=== PATIENT | female | born 1980 | race Caucasian/White ===

== ENCOUNTER 2025-04-05 09:40 | Outpatient (AMB) | payer OTHER, SELFPAY ==
[2025-04-05 09:42] VITALS: BP 102/80; PULSE 66; RESP 18; TEMP 36.2; O2SAT 96; BMI 50.2
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
--- OUTSIDE RECORDS SUMMARY | 2025-04-05 11:02 | XMS_ITS | Clinical Summary ---
Author Organization Merged With [facility] Address [address] [place] [address] [place] [phone] Phone Care Team Providers Care Elevator Constructor Name Role Phone Annalise Holm Angélica MULTICUT LINE OPERATOR Primary Care Provider [phone] Social History Tobacco Use Types Packs/Day Years Used Date Smoking Tobacco: Never Assessed Education Answer Date Recorded Are you interested in more education? Not on krystina e 10/08/2024 Are you concerned about learning? Not on file 10/08/2024 No 10/08/2024 No 10/08/2024 Digital Access Answer Date Recorded No 10/08/2024 No 10/08/2024 Reliable internet access at home? Not on file 10/08/2024 Device with a working camera? Not on file Comments Unknown Sex and Gender Information Value Date Recorded Sex Assigned at Female 10/08/2024 11:25 AM EDT Legal Sex Female 11:15 AM EDT Gender Identity Female 10/08/2024 11:25 AM EDT Sexual Orientation Straight 10/08/2024 11 :25 AM EDT Plan of Treatment Upcoming Encounters Date Type Department Care Team (Late st Contact Info) Description 06/20/2025 3:00 PM EST [facility] [address] [place] [id number] Sandra Vargas MD, MPH [address] [place] [phone] [email or web address] Maintenance Due Date Last Done Comments Adult Td,Tdap Booster 1979 LIPID PANEL 1979 DEPRESSION SCREENING 1991 SMOKING Hx and SMOKELESS TOB ACCO SCREENING 1992 HEPATITIS C SCREENING 1997 HIV ONE-TIME SCREENING (18-6 5 YEARS) 1997 PAP SMEAR 2000 MAMMOGRAM 2019 COLOGUARD 2024 COLONOSCOPY 2024 COLORECTAL CANCER SCREENING 2024 FIT TEST 2024 FOBT 2024 SIGMOIDOSCOPY 2024 VIRTUAL COLONOSCOPY 2024 INFLUENZA VACCINE (#1) 2025 COVID-19 VACCINE ( - 2024-2 6 season) 2025 HEPATITIS A VACCINES Aged Out No long er eligible based on patient's age to complete this topic HIB VACCINES Aged Out No longer eligi ble based on patient's age to complete this topic MENINGOCOCCAL VACCINES (ACWY) Aged Out No longer eligible based on patient's age to complete this topic MENINGOCOCCAL VACCINES (B) Aged Out N o longer eligible based on patient's age to complete this topic PNEUMOCOCCAL VACCINES (0-49 years) Aged Out No longer eligible based on patient's age to complete this topic Medical Devices Not on file Insurance [facility] [employer] [facility] [employer] Care Teams Elevator Constructor Relationship Specialty Start Date End Date Annalise Holm NP [address] [place] [address] [phone] PCP - General Family Medicine 10/08/24 Additional Source Comments The information contained in this document represents components of the legal health record. It is not the complete legal health record.Merged With [facility]
== END 2025-04-05 10:56 | disposition home or self-care (01) ==
LOC: HO.HMCH 09:41
PROVIDERS: PCP Internal Medicine; Visit Provider Internal Medicine
DX: R21 Rash and other nonspecific skin eruption (principal); J44.9 Chronic obstructive pulmonary disease, unspecified; E66.9 Obesity, unspecified; Z68.43 Body mass index [BMI] 50.0-59.9, adult; F32.9 Major depressive disorder, single episode, unspecified; F41.1 Generalized anxiety disorder; E03.9 Hypothyroidism, unspecified; M19.90 Unspecified osteoarthritis, unspecified site; Z23 Encounter for immunization

== ENCOUNTER → 2025-04-05 09:40 | Outpatient (BNVA) | payer OTHER, SELFPAY | PROVIDERS: PCP Internal Medicine; Visit Provider Internal Medicine | DX: R21 Rash and other nonspecific skin eruption (principal); F32.9 Major depressive disorder, single episode, unspecified; F41.1 Generalized anxiety disorder; E03.9 Hypothyroidism, unspecified; M19.90 Unspecified osteoarthritis, unspecified site; J44.9 Chronic obstructive pulmonary disease, unspecified; E66.9 Obesity, unspecified; Z23 Encounter for immunization | CPT/HCPCS: 90471; 90656; 99212 ==

== ENCOUNTER 2025-04-07 09:00 | Outpatient (REF) | payer OTHER, SELFPAY ==
--- NOTE | ~2025-04-07 | XR_ITS ---
XR KNEE EDWIN 2V HISTORY: Unspecified osteoarthritis COMPARISON: None. TECHNIQUE: AP view bilateral knees standing, and lateral views of each knee. FINDINGS: RIGHT KNEE: No fracture, dislocation, or suspicious bone lesion. Severe osteoarthrosis noted medial compartment with near [id number] appearance. Moderate to severe changes noted lateral compartment and patellofemoral compartment with large marginal osteophytes, and subchondral sclerosis. There is spurring of the tibial spines. Minimal varus angulation of the joint. No evidence of significant joint effusion. Soft tissues appear normal. LEFT KNEE: No fracture, dislocation, or suspicious bone lesion. Severe osteoarthrosis noted medial compartment with near [id number] appearance. Moderate changes noted lateral compartment and moderate to severe changes in the patellofemoral compartment with large marginal osteophytes and subchondral sclerosis. There is spurring of the tibial spines. Minimal varus angulation of the joint. No evidence of significant joint effusion. Soft tissues appear normal. XR/XR Knee Edwin 1or 2V IMPRESSION: RIGHT KNEE: 1. No acute bony or soft tissue abnormalities. No joint effusion. 2. Severe tricompartmental osteoarthrosis most significant in the medial compartment, where there is near [id number] appearance. LEFT KNEE: 1. No acute bony or soft tissue abnormalities. No joint effusion. 2. Severe medial compartment osteoarthrosis, with moderate to severe changes in the patellofemoral compartment, and moderate changes in the lateral compartment Electronically signed by: Matt Conley MD 04/07/2025 10:03 AM EDT
[2025-04-07 09:29] LABS: MANUAL DIFF FLAG NO
[2025-04-07 09:41] LABS: Hematocrit 38.3 % (37.0-47.0); Hemoglobin 12.2 g/dl (12.0-16.0); Imm Gran Abs Auto 0.02 X10*3/uL (0.00-0.03); Imm Gran Pct Auto 0.2 % (0.0-0.4); Lymphocytes Absolute Auto 2.1 X10*3/uL (1.2-4.9); Mean Corpuscular HGB Conc 31.9 g/dl (31.0-35.0); Mean Corpuscular Hemoglobin 27.8 pg (27.0-33.0); Mean Corpuscular Volume 87.2 fL (80.0-98.0); NRBC Abs Auto 0.000 X10*3/uL (0.0-0.012); NRBC Pct Auto 0.0 /100WBC (0.0-0.2); Platelet Count 322 X10*3/uL (160-400); Red Blood Count 4.39 X10*6/uL (4.20-5.50); White Blood Count 8.1 X10*3/uL (4.8-10.8)
[2025-04-07 10:19] LABS: Alanine Aminotransferase 18 U/L (0-31); Albumin Level 4.4 g/dL (3.5-5.0); Alkaline Phosphatase 83 U/L (39-117); Anion Gap 13 (12-20); Aspartate Amino Transferase 29 U/L (5-31); Blood Urea Nitrogen 13 mg/dL (9-16); Calcium 9.0 mg/dL (8.4-10.2); Carbon Dioxide 24 mmol/L (22-29); Chloride 108 mmol/L (96-108); Cholesterol 160 mg/dL (<200); Estimated Glomerular Filt Rate 59; HDL Cholesterol 40 mg/dL (>40); Potassium 4.3 mmol/L (3.3-5.1); Sodium 141 mmol/L (135-145); Total Protein 6.9 g/dL (6.5-8.0); Triglycerides 159 mg/dL (<150)
[2025-04-07 10:31] LABS: HBS Num1 15.44 mIU/mL (0-7.99); HBc Num1 0.11 S/CO (0.00-0.79); HBsAGNum1 0.35 S/CO (0.00-0.99); HIV Num 1 0.13 S/CO (0.00-0.99); Hepatitis B Surface Antigen Negative (Negative); ~HepC Num1 0.13 S/CO (0.00-0.79); ~Hepatitis B Surface Antibody REACTIVE (Nonreactive); ~Hepatitis C Antibody Nonreactive (Nonreactive)
[2025-04-07 11:26] LABS: Free T4 (Free Thyroxine) 0.77 ng/dL (0.71-1.85)
[2025-04-11 19:28] LABS: VITAMIN D (1,25 OH) D3 40 pg/mL; Vit D (1,25-Dihydroxy) Total 40 pg/mL (18-72); Vitamin D (1,25 OH) D2 <8 pg/mL
== END 2025-04-07 09:01 | disposition home or self-care (01) ==
LOC: HO.XRAY 09:00
PROVIDERS: PCP Internal Medicine; Visit Provider Internal Medicine
DX: Z00.00 Encounter for general adult medical examination without abnormal findings (principal); M17.0 Bilateral primary osteoarthritis of knee; Z11.4 Encounter for screening for human immunodeficiency virus [HIV]; Z11.59 Encounter for screening for other viral diseases
CPT/HCPCS: 36415; 73560; 80053; 80061; 82043; 82570; 82652; 83036; 84439; 84443; 85025; 86704; 86706; 86803; 87340; 87389

== ENCOUNTER → 2025-04-07 09:33 | Outpatient (BNV) | payer OTHER, SELFPAY | PROVIDERS: PCP Internal Medicine; Visit Provider Radiology Diagnostic Radiology | DX: M17.0 Bilateral primary osteoarthritis of knee (principal) | CPT/HCPCS: 73560 ==

== ENCOUNTER 2025-04-28 11:15 | Outpatient (AMB) | payer OTHER, SELFPAY ==
[2025-04-28 11:20] VITALS: BP 118/64; PULSE 70; TEMP 36.1; O2SAT 96; BMI 50.3
--- NOTE | 2025-04-28 11:20 | MHC.PC.OV ---
Vital Signs 04/28/25 11:20 Height 5 ft 1 in Weight 266 lb 5.094 oz BMI 50.3 BP 118/64 Blood Pressure Location Lt brachial Position Sitting Pulse 70 Pulse Source Pulse Oximeter Temp 97.0 F Temp Source Temporal Artery Scan Pulse Oximetry (%) 96 Oxygen Delivery Method Room Air Intake Visit Reasons: [facility] 04/19 COPD Attack Allergies brexpiprazole (From Rexulti) Allergy (Severe, Verified 04/28/25 11:23) Rash shellfish derived (shellfish) Allergy (Severe, Verified 04/28/25 11:23) Irritable lamotrigine (From Lamictal) Adverse Reaction (Severe, Verified 04/28/25 11:23) Rash venlafaxine (From Effexor) Adverse Reaction (Severe, Verified 04/28/25 11:23) Rash Medication List - Last Reconciled 04/28/25 by Stevie Rosales MD acetaminophen ER (Tylenol 8 Hour) 650 mg PO Q8H PRN acetaminophen ER (Tylenol Arthritis Pain) 650 mg PO Q8H PRN atorvastatin (Lipitor) 10 mg PO DAILY budesonide-formoterol 160-4.5 mcg/actuation (Symbicort) 2 puffs inhalation BID diclofenac sodium 1% (Voltaren Arthritis Pain) 4 grams topical QID hydroxyzine HCl 50 mg PO TID PRN ibuprofen 800 mg PO Q8H PRN [Knee brace As directed] levothyroxine (Synthroid) 175 mcg PO DAILY melatonin 6 mg PO BEDTIME PRN methocarbamol 1,000 mg PO BID nicotine 1 patch transdermal DAILY oxcarbazepine 900 mg PO BID trazodone 200 mg PO BEDTIME Tobacco use date assessed: 04/28/25 Dental Screening Dental Screen Date: 04/28/25 Did you have a dental visit in the last 12 months?: Yes Did you have a dental problem in the last 6 months where you did not have access to dental care?: No Was dental information given to patient?: Patient has dentist HPI HPI Comments History of Present Illness Details The patient is a 44-year-old female presenting for follow-up after a recent hospitalization for a COPD exacerbation. She was hospitalized approximately 7-8 days ago for a severe cough and dyspnea, which she believes started after receiving a flu shot. She was treated with prednisone and duoneb. Her W-U with CXR, Respiratory panel and lower extremity was negative. The patient also has a history of chronic pain, including severe leg pain for which an ultrasound was performed during her recent hospitalization, though results are not yet available. She has a history of degenerative disc disease in her lower back confirmed by an MRI six years ago. Her pain causes difficulty with standing for long periods, necessitates weight shifting, and has resulted in numbness in both legs. She currently uses a brace and ibuprofen 800 mg for pain management and reports difficulty with activities of daily living like getting dressed. Past gynecological history is significant for a sizable ovarian cyst diagnosed at [facility] about five years ago, for which she never had a follow-up. During her recent hospitalization, she experienced an episode of severe pelvic pain, causing her to wonder if the cyst had burst. On Friday, she was seen at an urgent care for a rash and was diagnosed with scabies. She has since completed one course of cream treatment and requires a second application. The patient's other medical history includes hypothyroidism, for which she takes levothyroxine 175 mcg daily. She has a mammogram and a pulmonary function test scheduled for May and an [facility] appointment in September. She has pending appointments for dermatology and weight management. For her mental health, she reports significant anxiety and is currently out of her prescribed medications including methocarbamol 500 mg, melatonin, and hydroxyzine (Vistaril) 50 mg, after discontinuing care with her previous psychiatrist. She is in the process of establishing care with a new therapist. [facility] Medical History (Updated 04/28/25 @ 13:10 by Stevie Rosales MD) COPD (chronic obstructive pulmonary disease) Other intervertebral disc degeneration, 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 Pre-diabetes Arthritis of right knee Kidney stones Surgical History H/O lithotripsy Social History Household Members: Other Housing: Other Housing Other:: [facility] Alcohol intake: never Patient Tobacco Use Status: Former Tobacco user Tobacco use type: Cigarette Cigarettes Per Day: 0.5 e-Cigarette/Vaping Use: Never Used service: No Current occupational status: unemployed Cognitive needs: No Hearing needs: No Vision needs: Yes Questionnaire PHQ-9 Over the last 2 weeks, how often have you been bothered by any of the following problems? 1. Little interest or pleasure in doing things: several days 2. Feeling down, depressed, or hopeless: several days 3. Trouble falling or staying asleep, or sleeping too much: nearly every day 4. Feeling tired or having little energy: nearly every day 5. Poor appetite or overeating: not at all 6. Feeling bad about yourself - or that you are a failure or have let yourself or your family down: not at all 7. Trouble concentrating on things, such as reading the newspaper or watching television: nearly every day 8. Moving or speaking so slowly that other people could have noticed. Or the opposite - being so fidgety or restless that you have been moving around a lot more than usual: not at all 9. Thoughts that you would be better off or of hurting yourself in some way: not at all Total score: 11 Source: Developed by Drs. Phan Land, Lilian Brady, Francois Salguero and colleagues, with an educational nayely from [employer]. Thrive Questionnaire Date Thrive assessed: 04/05/25 I am a: Patient What is your living situation today?: I have a steady place to live Within the past 12 months, did the food you bought not last and you didn't have the money to get more?: Often true Within the past 12 months, did you worry whether your food would run out before you got money to buy more?: Often true Do you have trouble paying for medicines?: No Do you have trouble getting transportation to medical appointments?: No Do you have trouble paying your heating and electricity bill?: No Do you have trouble taking care of your child, family member or friend?: No Do you have trouble with day-to-day activities such as bathing, preparing meals, shopping, managing finances, etc.?: Yes Are you currently unemployed and looking for a job?: No Are you interested in more education?: Yes THRIVE Score: 2 AUDIT C Alcohol Use Questionnaire (AUDIT-C) 1. How often do you have a drink containing alcohol?: Never 3. How often do you have six or more drinks on one occasion?: Never Total Score: 0 VOLODYMYR-7 AMB Questionnaire VOLODYMYR-7 Date VOLODYMYR - 7 assessed: 04/05/25 Feeling nervous, anxious, or on edge: 3 = Nearly every day Not being able to stop or control worryin = More than half the days Worrying too much about different things: 2 = More than half the days Trouble relaxin = More than half the days Being so restless that it is hard to sit still: 0 = Not at all Becoming easily annoyed or irritable: 2 = More than half the days Feeling afraid as if something awful might happen: 3 = Nearly every day Total VOLODYMYR-7 score (0-4 normal; 5-9 mild; 10-14 moderate; 15-21 severe): 14 Source: Developed by Drs. Phan Land, Lilian Brady, Francois Salguero and colleagues, with an educational nayely from [employer]. Review of Systems Const Details: As per HPI. Physical exam (Primary Care) Vital Signs: Last Vital Signs Temp 97.0 F 04/28/25 11:20 Pulse 70 04/28/25 11:20 BP 118/64 04/28/25 11:20 Pulse Ox 96 04/28/25 11:20 Oxygen Delivery Method Room Air 04/28/25 11:20 BMI result Body Mass Index 50.3 Tobacco/Smoking Status: Tobacco use Status Tobacco use date assessed 04/28/25 04/28/25 11:24 Patient Tobacco Use Status Former Tobacco user 04/28/25 11:24 Tobacco use type Cigarette 04/28/25 11:24 e-Cigarette/Vaping Use Never Used 04/28/25 11:24 PHQ-9: PHQ-9 Score PHQ-9: Total score 11 04/28/25 11:24 Thrive Assessment: Date of Thrive Assessment Date Thrive assessed 04/05/25 04/28/25 11:24 Const Other: Pertinent findings are in BOLD GENERAL APPEARANCE NAD, activity normal for age, well developed/ well nourished, no cyanosis, pallor, or diaphoresis. EYES lids/conjunctiva normal. EARS/NOSE/THROAT Mucous membranes moist, nares normal, lips/teeth normal uvula midline without oral pharyngeal erythema, exudate or swelling TMs normal bilaterally. No lymphangitis/lymphedema. HEAD/NECK normocephalic atraumatic, no facial trauma, neck is supple. RESPIRATORY respiratory effort normal, speaks in full sentences, no tripod position, no accessory muscle use. Lungs clear to auscultation without rhonchi, wheezes, rales CARDIAC Regular rate and rhythm, no edema. ABDOMINAL Soft, ND/NT. No evidence of fluid wave. No pulsatile masses on exam, rebound tenderness, Reynolds sign or pain over Mcburney's point. MUSCLES/EXTREMITIES No abnormal range of motion, no swelling. Limping due to knee pain. SKIN Warm, pink and dry. No rashes, dermatoses, petechiae or lesions. NEUROLOGICAL Speech is clear and appropriate. Normal level of consciousness. Gait and coordination are normal. 5/5 strength in all extremities. PSYCH Normal mood and affect. Judgement/competence is appropriate Coding Level of Care Code Est Pt Level 4 (24186) Diagnoses Chronic midline low back pain, unspecified whether sciatica present M54.50; G89.29 Chronicity: chronic Back pain laterality: midline Sciatica presence: unspecified whether sciatica present Hypothyroidism, unspecified type E03.9 Hypothyroidism type: unspecified Class 3 severe obesity due to excess calories without serious comorbidity with body mass index (BMI) of 50.0 to 59.9 in adult E66.01; Z68.43; Z68.43 Obesity type: due to excess calories Obesity classification: adult class 3 (BMI >= 40) Body mass index: BMI 50.0-59.9 Serious obesity comorbidity presence: without serious comorbidity Arthritis of right knee M17.11 Chronic obstructive pulmonary disease, unspecified COPD type J44.9 COPD type: unspecified COPD Scabies B86 VOLODYMYR (generalized anxiety disorder) F41.1 Moderate episode of recurrent major depressive disorder F33.1 Major depression recurrence: recurrent Active/Remission status: currently active Major depression episode severity: moderate Cyst of ovary, unspecified laterality N83.209 Laterality: unspecified laterality Time Spent (min) 40 Assessment & Plan Assessment & Plan (1) Lower back pain: Comment: Radiating to her legs. Code(s): M54.50 - Low back pain, unspecified Category: Medical Qualifiers: Chronicity: chronic Back pain laterality: midline Sciatica presence: unspecified whether sciatica present Qualified Code(s): M54.50 - Low back pain, unspecified; G89.29 - Other chronic pain Plan: Patient has been seeing Orthopaedics surgery for her lower back pain. I ordered lumbar X-ray for better understanding of her condition. (2) Hypothyroidism: Code(s): E03.9 - Hypothyroidism, unspecified Category: Medical Qualifiers: Hypothyroidism type: unspecified Qualified Code(s): E03.9 - Hypothyroidism, unspecified Plan: Recently increased her Levothyroxine dose to 175 mcg. Repeat labs due in 8 weeks to check for progression. F-U appointment on 06/06 for further assesment of her thyroid. (3) Obesity: Code(s): E66.9 - Obesity, unspecified Category: Medical Qualifiers: Obesity type: due to excess calories Obesity classification: adult class 3 (BMI >= 40) Body mass index: BMI 50.0-59.9 Serious obesity comorbidity presence: without serious comorbidity Qualified Code(s): E66.01 - Morbid (severe) obesity due to excess calories; Z68.43 - Body mass index [BMI] 50.0-59.9, adult; Z68.43 - Body mass index [BMI] 50.0-59.9, adult Plan: Advised patient on lifestyle modification such as excluding dairy, red meat and gluten from her diet. She will schedule an appointment with weight management to better help with her Obesity. (4) Arthritis of right knee: Code(s): M17.11 - Unilateral primary osteoarthritis, right knee Category: Medical Plan: - The patient has a follow-up with Orthopedics scheduled for May 03. - Will defer further management of back and leg pain until after the orthopedic assessment. - Provided a one-month bridge prescription for methocarbamol 500 mg tablets, to be taken twice a day, for muscle relaxation. (5) COPD (chronic obstructive pulmonary disease): Code(s): J44.9 - Chronic obstructive pulmonary disease, unspecified Category: Medical Qualifiers: COPD type: unspecified COPD Qualified Code(s): J44.9 - Chronic obstructive pulmonary disease, unspecified Plan: - The patient was recently hospitalized for what was described as a COPD attack. - She will continue her Symbicort and albuterol inhalers. - Will proceed with scheduled pulmonary function test on June 17. - Will attempt to obtain records from her recent hospital admission. (6) Scabies: Code(s): B86 - Scabies Category: Medical Plan: - The patient was diagnosed at urgent care and requires a second treatment application. - A prescription for permethrin cream will be sent to the pharmacy for the second treatment. (7) VOLODYMYR (generalized anxiety disorder): Code(s): F41.1 - Generalized anxiety disorder Category: Medical Plan: - The patient is currently out of her psychiatric medications. - A one-month bridge prescription for melatonin, hydroxyzine 50 mg, and methocarbamol 500 mg will be provided to manage symptoms until she establishes care with a new psychiatrist. - Will check thyroid labs in two weeks. (8) MDD (major depressive disorder): Code(s): F32.9 - Major depressive disorder, single episode, unspecified Category: Medical Qualifiers: Major depression recurrence: recurrent Active/Remission status: currently active Major depression episode severity: moderate Qualified Code(s): F33.1 - Major depressive disorder, recurrent, moderate Plan: Same as under VOLODYMYR. (9) Ovarian cyst: Code(s): N83.209 - Unspecified ovarian cyst, unspecified side Category: Medical Qualifiers: Laterality: unspecified laterality Qualified Code(s): N83.209 - Unspecified ovarian cyst, unspecified side Plan: - The patient reports a history of an ovarian cyst and a recent episode of severe pelvic pain. - Recommended discussing this with her [facility] at her scheduled appointment in September, where an ultrasound may be performed for further evaluation. Plan I spoke with the patient about her recent hospitalization for a COPD exacerbation and will attempt to obtain the records from that visit. We discussed her chronic back and leg pain, and I advised her to see what the eviction specialist says at her upcoming appointment. I agreed to provide a one-month bridge prescription for her methocarbamol, hydroxyzine, and melatonin since she is out of them and is in the process of establishing care with a new psychiatrist. I refilled her scabies cream for her second application. Regarding her history of an ovarian cyst and recent pelvic pain, I recommended she discuss this with her [facility], who may order an ultrasound. We will recheck her thyroid labs in two weeks and she will follow up in the office in May after her other appointments are completed. Orders: Orders XR lumbar spine 2-3V Today M54.50 - Low back pain, unspecified Medications: New hydroxyzine HCl 50 mg PO TID PRN 60 tabs 0RF anxiety methocarbamol 1,000 mg (2 x 500 mg) PO BID 30 tabs 0RF melatonin 6 mg (2 x 3 mg) PO BEDTIME PRN 60 caps 0RF insomnia permethrin 5% apply second treatment 14 days after first treatment if live lice remain 1 appl topical Q14D 60 grams 0RF 2 doses
--- OUTSIDE RECORDS SUMMARY | 2025-04-28 14:07 | XMS_ITS | Clinical Summary ---
Author Organization [facility] Address [address] [place] [address] [place] [phone] Phone Care Team Providers Care Patient Admitting Representative Name Role Phone Annalise Holm Angélica [facility] Primary Care Provider [phone] Social History Tobacco Use Types Packs/Day Years [...] Description 06/20/2025 3:00 PM EST [facility] [address] [place] [phone] Sandra Vargas MD, MPH [address] [place] [phone] [email or web address] Health Maintenance Due Date Last Done Comments [...] topic Medical Devices Not on file Insurance [facility] [place] [address] [facility] [employer] [facility] [employer] Care Teams Patient Admitting Representative Relationship Specialty Start Date End Date Annalise Holm NP [address] [place] [address] [phone] PCP - General Family Medicine 10/08/24 Additional Source Comments The information contained in this document represents components of the legal health record. It is not the complete legal health record.[facility]
== END 2025-04-28 13:28 | disposition home or self-care (01) ==
LOC: HO.HMCH 11:16
PROVIDERS: PCP Internal Medicine; Visit Provider Internal Medicine
DX: J44.9 Chronic obstructive pulmonary disease, unspecified (principal); E66.01 Morbid (severe) obesity due to excess calories; Z68.43 Body mass index [BMI] 50.0-59.9, adult; F33.1 Major depressive disorder, recurrent, moderate; M54.50 Low back pain, unspecified; G89.29 Other chronic pain; E03.9 Hypothyroidism, unspecified; M17.11 Unilateral primary osteoarthritis, right knee; B86 Scabies; F41.1 Generalized anxiety disorder

== ENCOUNTER → 2025-04-28 11:15 | Outpatient (BNVA) | payer OTHER, SELFPAY | PROVIDERS: PCP Internal Medicine; Visit Provider Internal Medicine | DX: J44.9 Chronic obstructive pulmonary disease, unspecified (principal); M51.370 Other intervertebral disc degeneration, lumbosacral region with discogenic back pain only; G89.29 Other chronic pain; E03.9 Hypothyroidism, unspecified; E66.01 Morbid (severe) obesity due to excess calories; Z68.43 Body mass index [BMI] 50.0-59.9, adult; M17.11 Unilateral primary osteoarthritis, right knee; B86 Scabies; F41.1 Generalized anxiety disorder; F33.1 Major depressive disorder, recurrent, moderate; N83.209 Unspecified ovarian cyst, unspecified side; Z13.31 Encounter for screening for depression; Z13.39 Encounter for screening examination for other mental health and behavioral disorders; Z87.891 Personal history of nicotine dependence; Z79.890 Hormone replacement therapy; Z79.899 Other long term (current) drug therapy | CPT/HCPCS: 99212 ==

== ENCOUNTER 2025-05-03 14:55 | Outpatient (AMB) | payer OTHER, SELFPAY ==
--- OUTSIDE RECORDS SUMMARY | 2025-05-01 12:30 | XMS_ITS | Encounter Summary ---
Author Organization [facility] Address [address] [place] [address] Care Team Providers Care Clinical Biostatistician Name Role Phone Physician, No Pcp Primary Care Provider Unavaila ble Reason for Visit * Reason Comments Knee Pain Encounter Details Date Type Department Care Team (Late st Contact Info) Description 05/01/2025 12:30 PM EST - 05/01/2025 3:15 PM EST Emergency [facility] Emergency [address] [place] [phone] Skyler Connor MD [address] [place] [phone] Sheri Velazquez MD [address] [place] [phone] Sprain of right knee, unspecified ligament, initial encounter (Primary Dx); Arthritis of right knee Discharge Disposition: Home or Self Care Social History Tobacco Use Types Packs/Day Years Used Date Smoking Tobacco: Never Smokeless Tobacco: Never Comments Unknown Sex and Gender Information Value Date Recorded Sex Assigned at Not on file Legal Sex Female 10:29 AM EDT Gender Identity Not on file Sexual Orientation Not on file documented as of this encounter Last Filed Vital Signs Vital Sign Reading Time Taken Comments Blood Pressure 105/63 05/01/2025 1:31 PM EST Pulse 60 05/01/2025 1:31 PM EST Temperature 36.4 C (97.5 F) 05/01/2025 1:31 PM EST Respiratory Rate 15 05/01/2025 1:31 PM EST Oxygen Saturation 98% 05/01/2025 1:31 PM EST Inhaled Oxygen Concentration - - Weight 120 kg (264 lb 8.8 oz) 05/01/2025 1:22 PM EST Height 58.4 cm (1' 11 ) 05/01/2025 1:31 PM EST Body Mass Index 351.61 05/01/2025 1:22 PM EST documented in this encounter Discharge Instructions * Discharge Instructions* Skyler Connor MD - 05/01/2025 2:55 PM EST Please follow up with your orthopedics clinic appointment in 2 days. * Attachments The following attachments cannot be sent through Care Everywhere. * Knee Sprain (Malaysian) * RICE: General Info (Malaysian) documented in this encounter Discharge Disposition Disposition Code Departure Means Destination Comment s Home or Self Care documented in this encounter Progress Notes * Shruthi Mcconnell RN - 05/01/2025 12:35 PM EST Patient BIBA from home with complaints of right knee pain states twisted it with getting ready. Patient put her own knee brace on. Patient states has bad osteoarthritis. * Skyler Connor MD - 05/01/2025 12:26 PM EST Images from the original note were not included. [facility] EMERGENCY EMERGENCY DEPARTMENT ENCOUNTER Patient: Dagoberto Mora MR# [id number] Time of Service: 05/01/2025 12:30 PM History PCP: No Pcp Physician. Chief Complaint Patient presents with Knee Pain Dagoberto Mora is a 44 y.o. female who presents to the ED with chief complaint Knee Pain 44 year old female w/ hx of bilateral knee osteoarthritis presenting w/ R knee pain. Pt states she twisted her knee while in the shower and has felt pain since. She feels like her knee is unsteady and it is difficulty to bear weight. Pain is localized to the posterior aspect. She states she has hadchronic knee pain for the last several years, had an ultrasound done recently but isn't sure of theresults. States her doctor provided her a knee brace and applied the brace today after twisting herknee. States she has a follow up appointment w/ Orthopedics on 05/03. Took ibuprofen today w/ minimal relief ROS Negative except for HPI. Allergies: Effexor [venlafaxine], Iodine, Lamictal [lamotrigine], and Rexulti [brexpiprazole] Medical History[1] Problem List[2] Surgical History[3] Family History[4] Social History[5] Physical Exam Vitals: 05/01/25 1322 05/01/25 1331 BP: 99/70 105/63 Patient Position: Sitting Lying Pulse: 63 60 Resp: 16 15 Temp: 36.4 ??C (97.5 ??F) 36.4 ??C (97.5 ??F) TempSrc: Oral SpO2: 98% 98% Weight: 120 kg (264 lb 8.8 oz) Height: (!) 0.584 m (23 ) General Appearance: No acute distress Skin: Dry Eyes: EOMI, no scleral icterus HENT: Normocephalic, atraumatic, moist mucous membranes Neck: Supple, normal range of motion Cardiovascular: Regular rate and rhythm, no murmur, 2+ radial pulses Respiratory: Lungs clear to auscultation bilaterally, no respiratory distress, no wheezing or rhonchi Abdomen: Soft, non-tender, non-distended MSK: ROM intact w/ discomfort, TTP in popliteal fossa, no significant effusion Neurologic: Awake, alert, no obvious deficits, moving all extremities Psychiatric: Appropriate, cooperative Results Results for orders placed or performed during the hospital encounter of 04/19/25 Troponin I High Sensitivity Collection Time: 04/19/25 11:42 AM Result Value Ref Range High Sensitivity Troponin I 7 <=54 ng/L B-Type Natriuretic Peptide (BNP) Collection Time: 04/19/25 11:42 AM Result Value Ref Range BNP 93 <=100 pcg/mL Comprehensive Metabolic Panel (CMP) Collection Time: 04/19/25 11:42 AM Result Value Ref Range Sodium 138 133 - 145 mmol/L Potassium 4.3 3.5 - 5.5 mmol/L Chloride 107 96 - 110 mmol/L CO2 24 21 - 32 mmol/L Anion Gap 7 3 - 11 Glucose 92 70 - 100 mg/dL BUN 9 5 - 25 mg/dL Creatinine 0.88 0.50 - 1.10 mg/dL eGFR 83 >=60 mL/min/1.73m2 BUN/Creatinine Ratio 10.2 Calcium 9.6 8.5 - 10.5 mg/dL AST (SGOT) 30 10 - 42 unit/L ALT (SGPT) 28 10 - 60 unit/L Alkaline Phosphatase 105 42 - 121 unit/L Total Protein 6.9 6.0 - 8.0 g/dL Albumin 3.6 3.2 - 5.0 g/dL Total Bilirubin 0.2 0.0 - 1.4 mg/dL hCG Qualitative Collection Time: 04/19/25 11:42 AM Result Value Ref Range hCG Qual Negative Negative Magnesium Collection Time: 04/19/25 11:42 AM Result Value Ref Range Magnesium 1.9 1.9 - 2.6 mg/dL Protime-INR Collection Time: 04/19/25 11:42 AM Result Value Ref Range Protime 12.1 10.6 - 13.9 sec INR 1.0 APTT Collection Time: 04/19/25 11:42 AM Result Value Ref Range aPTT 39.1 24.1 - 39.3 sec CBC auto differential Collection Time: 04/19/25 11:42 AM Result Value Ref Range WBC 10.8 4.8 - 10.8 K/mcL RBC 4.60 3.80 - 4.80 M/mcL Hemoglobin 12.9 11.5 - 16.0 g/dL Hematocrit 41.0 35.0 - 47.0 % MCV 88.4 79.0 - 98.0 FL MCH 27.8 27.0 - 32.0 pcg MCHC 31.5 (L) 32.0 - 37.0 g/dL RDW 14.2 11.0 - 15.0 % Platelets 440 (H) 130 - 400 K/mcL MPV 10.0 7.0 - 11.0 FL NRBC 0.0 <1.0 % NRBC Absolute 0.00 <0.10 K/mcL Neutrophils Relative 64.2 % Lymphocytes Relative 22.1 % Monocytes Relative 8.9 % Eosinophils Relative 3.7 % Basophils Relative 0.5 % Immature Granulocytes Relative 0.6 % Neutrophils Absolute 6.92 1.50 - 7.00 K/mcL Lymphocytes Absolute 2.38 1.00 - 5.00 K/mcL Monocytes Absolute 0.96 0.20 - 1.00 K/mcL Eosinophils Absolute 0.40 0.00 - 0.50 K/mcL Basophils Absolute 0.05 0.00 - 0.20 K/mcL Immature Granulocytes Absolute 0.07 (H) 0.00 - 0.03 K/mcL [id number], RSV, Influenza A and B qualitative RT-PCR Collection Time: 04/19/25 11:43 AM Specimen: Nasopharynx; Swab Result Value Ref Range Influenza A PCR Not Detected Not Detected Influenza B PCR Not Detected Not Detected RSV PCR Not Detected Not Detected SARS COV-2 Not Detected Not Detected Troponin I High Sensitivity Collection Time: 04/19/25 2:10 PM Result Value Ref Range High Sensitivity Troponin I 7 <=54 ng/L 12-Lead ECG Collection Time: 04/19/25 2:24 PM Result Value Ref Range Ventricular Rate ECG 63 BPM Atrial Rate 63 BPM P-R Interval 152 ms QRS Duration 80 ms Q-T Interval 434 ms QTc 444 ms P Wave [place] 72 degrees R [place] 39 degrees T [place] 53 degrees ECG Interpretation Normal sinus rhythm Normal ECG No previous ECGs available Confirmed by Mariam AMBROSE JOHN ([id number]) on 04/20/2025 7:11:23 PM Urinalysis with reflex microscopic Collection Time: 04/19/25 3:47 PM Result Value Ref Range Specific [place] Urine 1.011 1.003 - 1.030 pH, Urine 6.0 5.0 - 8.0 pH Leukocytes, Urine Negative Negative Nitrite, Urine Negative Negative Protein, Urine Negative <=Trace mg/dL Glucose, Urine Negative Negative mg/dL Ketones, Urine Negative Negative mg/dL Urobilinogen, Urine 0.2 0.2 - 1.0 mg/dL Bilirubin, Urine Negative Negative Blood, Urine Negative Negative XR Knee 4+ Views Right Final Result No acute fracture or subluxation. Severe osteoarthritis -------- FINAL REPORT -------- Dictated By: Prabhakar Roman Dictated Date: 05/01/2025 14:43 ET Assigned Physician: Prabhakar Roman Reviewed and Electronically Signed By: Prabhakar Roman Signed Date: 05/01/2025 14:45 ET Workstation ID: [id number] Transcribed By: Self Edit Transcribed Date: 05/01/2025 14:43 ET Procedures Medical Decision Making 44 year old female presenting w/ acute on chronic R knee pain after twisting knee in shower this morning. Pt is well appearing and nontoxic, in no acute distress. Exam w/ some TTP in popliteal fossa.Prior US reviewed from 04/19, no evidence of DVT. I have a low suspicion for DVT today as there is no significant LE edema as well as reassuring US recently. Sx seem most c/w knee sprain. XR obtainedwhich demonstrated severe osteoarthritis, no other acute findings. Pt advised to continue knee brace and to f/u w/ Ortho clinic in 2 days. ED return precautions given. Labs and imaging ordered in ED independently reviewed by me. My interpretation of the labs and/or imaging per ED course. Medications Administered Medications acetaminophen (TYLENOL) tablet 650 mg (650 mg oral Given 05/01/25 0484) Clinical Impressions as of 05/01/25 1502 Sprain of right knee, unspecified ligament, initial encounter Arthritis of right knee External Charts Reviewed: Prior imaging Additional History from Independent Historian: None Additional labs considered but not ordered: None Additional imaging considered but not ordered: None Chronic conditions that impact care: None Care affected by social determinants: None Discussed management with other providers: None Prescription management: In addition to any applicable prescriptions, the patient was counseled by me regarding [id number] medications that can be used at home. New Prescriptions No medications on file Disposition: Discharge CLINICAL IMPRESSION: 1. Sprain of right knee, unspecified ligament, initial encounter 2. Arthritis of right knee 05/01/2025 MD Skyler Kelly MD 05/01/25 1445 [1] Past Medical History: Diagnosis Date Asthma COPD (chronic obstructive pulmonary disease) (CMS/[facility] V24, [facility] V28) Disease of thyroid gland DJD (degenerative joint disease) Kidney stones Osteoarthritis [2] There is no problem list on file for this patient. [3] History reviewed. No pertinent surgical history. [4] No family history on file. [5] Social History Tobacco Use Smoking status: Never Smokeless tobacco: Never Skyler Connor MD 05/01/25 1502 documented in this encounter Plan of Treatment Not on file documented as of this encounter Procedures Procedure Name Priority Date/Time Associated Diagnosis Comments XR KNEE 4+ VIEWS RIGHT STAT 05/01/2025 2:37 PM EST documented in this encounter Results * XR Knee 4+ Views Right (05/01/2025 2:37 PM EST) Anatomical Region Laterality Modality Lower Extremities, Knee Right Radiogra phic Imaging 05/01/2025 2:43 PM EST Impressions 05/01/2025 2:45 PM EST No acute fracture or subluxation. Severe osteoarthritis -------- FINAL REPORT -------- Dictated By: Prabhakar Roman Dictated Date: 05/01/2025 14:43 ET Assigned Physician: Prabhakar Roman Reviewed and Electronically Signed By: Prabhakar Roman Signed Date: 05/01/2025 14:45 ET Workstation ID: [id number] Transcribed By: Self Edit Transcribed Date: 05/01/2025 14:43 ET Narrative 05/01/2025 2:45 PM EST EXAMINATION: RIGHT KNEE CLINICAL INFORMATION: Injury. Pain after twisting injury. COMPARISON: None. TECHNIQUE: 4 views right knee FINDINGS: No acute fracture or subluxation. There is severe narrowing of the medial compartment. There is at least moderate narrowing of the patellofemoral compartment. There is subchondral sclerosis and at least mild subchondral cystic and/or erosive change. There are extensive marginal osteophytes greatest in the medial and patellofemoral compartments. No evidence of lipoma hemarthrosis. Procedure Note Prabhakar Roman MD - 05/01/2025 EXAMINATION: RIGHT KNEE CLINICAL INFORMATION: Injury. Pain after twisting injury. COMPARISON: None. TECHNIQUE: 4 views right knee FINDINGS: No acute fracture or subluxation. There is severe narrowing of the medial compartment. There is at leastmoderate narrowing of the patellofemoral compartment. There is subchondralsclerosis and at least mild subchondral cystic and/or erosive change. There are extensive marginal osteophytes greatest in the medial andpatellofemoral compartments. No evidence of lipoma hemarthrosis. IMPRESSION: No acute fracture or subluxation. Severe osteoarthritis -------- FINAL REPORT -------- Dictated By: Prabhakar Roman Dictated Date: 05/01/2025 14:43 ET Assigned Physician: Prabhakar Roman Reviewed and Electronically Signed By: Prabhakar Roman Signed Date: 05/01/2025 14:45 ET Workstation ID: [id number] Transcribed By: Self Edit Transcribed Date: 05/01/2025 14:43 ET Skyler Connor MD IMG XR PROCEDURES Final Result documented in this encounter Visit Diagnoses Diagnosis Sprain of right knee, unspecified ligament, initial encounter- Primary Arthritis of right knee documented in this encounter Administered Medications Inactive Administered Medications - up to 3 most recent administrations Medication Order MAR Action Action Date Dose Rate Site acetaminophen (TYLENOL) tablet 650 mg 650 mg, oral, Once, On 05/01/25 at 1455, For 1 dose Given 05/01/2025 2:59 PM EST 650 mg documented in this encounter Active and Recently Administered Medications Due to Daylight Saving Time, this section may contain times in both EDT and EST. Scheduled Medication Order 04/29/2025 04/30/2025 05/01/2025 acetaminophen (TYLENOL) tablet 650 mg (COMPLETED) 650 mg, oral, Once, On 05/01/25 at 1455, For 1 dose 1459 (Given - Provid er: Fwan Araiza RN) documented in this encounter Orders Medications Ordered That Klever ht Not Have Been Administered Count Last Ordered Date First Ordered Date acetaminophen (TYLENOL) tablet 650 mg 1 07/2024 documented in this encounter Care Teams Clinical Biostatistician Relationship Specialty Start Date End Date Physician, No Pcp PCP - General 05/01/25 documented as of this encounter
--- NOTE | 2025-05-03 15:03 | MHC.OFFVIS ---
Vital Signs 05/03/25 15:04 Height 5 ft 1 in Weight 264 lb BMI 49.9 Intake Visit Reasons: Bilateral knee pain, Low back pain Intake Note: Dagoberto is a 44 year old female who presents with complaints of progressively worsening low back pain which radiates down her right leg as well as bilateral knee pains. The patient states that her symptoms began approximately 6 years ago. Since that time her pains have gotten worse in spite of continued non operative treatments. She has failed the last 3 months of conservative treatment which has included Tylenol, anti-inflammatory medicines, physical therapy and topical creams. She also reports intermittent weakness in her right leg. She has had cortisone injections in the past which gave her minimal relief. She has not had viscosupplementation injections. Allergies brexpiprazole (From Rexulti) Allergy (Severe, Verified 05/03/25 15:08) Rash shellfish derived (shellfish) Allergy (Severe, Verified 05/03/25 15:08) Irritable lamotrigine (From Lamictal) Adverse Reaction (Severe, Verified 05/03/25 15:08) Rash venlafaxine (From Effexor) Adverse Reaction (Severe, Verified 05/03/25 15:08) Rash Medication List - Last Reconciled 05/03/25 by Ron Martin MD acetaminophen ER (Tylenol 8 Hour) 650 mg PO Q8H PRN acetaminophen ER (Tylenol Arthritis Pain) 650 mg PO Q8H PRN atorvastatin (Lipitor) 10 mg PO DAILY budesonide-formoterol 160-4.5 mcg/actuation (Symbicort) 2 puffs inhalation BID diclofenac sodium 1% (Voltaren Arthritis Pain) 4 grams topical QID hydroxyzine HCl 50 mg PO TID PRN ibuprofen 800 mg PO Q8H PRN [Knee brace As directed] levothyroxine (Synthroid) 175 mcg PO DAILY melatonin 6 mg (2 x 3 mg) PO BEDTIME PRN methocarbamol 1,000 mg (2 x 500 mg) PO BID nicotine 1 patch transdermal DAILY oxcarbazepine 900 mg PO BID permethrin 5% 1 appl topical Q14D 2 doses trazodone 200 mg PO BEDTIME PFSH Medical History COPD (chronic obstructive pulmonary disease) Other intervertebral disc degeneration, 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 Pre-diabetes Arthritis of right knee Kidney stones Surgical History H/O lithotripsy Social History Household Members: Other Housing: Other Housing Other:: [facility] Alcohol intake: never Patient Tobacco Use Status: Former Tobacco user Tobacco use type: Cigarette Cigarettes Per Day: 0.5 e-Cigarette/Vaping Use: Never Used service: No Current occupational status: unemployed Cognitive needs: No Hearing needs: No Vision needs: Yes Physical Exam Vital Signs: BMI result Body Mass Index 49.9 Const Other: Well-nourished well-developed very friendly female awake alert and oriented x3 in no acute distress Back/Spine/Pelvis Other: Low back examination shows right-sided paraspinal muscle tenderness, pain with range of motion, positive straight leg raise test on the right at 70 degrees, 4/5 strength with testing of her right hip flexors and knee extensors when compared to 5/5 strength on her left side Extrem Other: Bilateral knee examination shows minimal effusions, palpable crepitus with range of motion, pain with range of motion, no instability Results Reviewed Results Reviewed: X-rays of the patient's bilateral knee show moderate joint space narrowing most significant in the medial compartments, subchondral sclerosis, no acute bony abnormalities X-rays of the patient's lumbar spine taken today show diffuse degenerative disc disease, no acute bony abnormalities Assessment & Plan Assessment & Plan (1) Low back pain: Code(s): M54.50 - Low back pain, unspecified Category: Medical (2) Low back pain radiating to right leg: Code(s): M54.50 - Low back pain, unspecified; M79.604 - Pain in right leg Category: Medical (3) Osteoarthritis of left knee: Code(s): M17.12 - Unilateral primary osteoarthritis, left knee Category: Medical (4) Osteoarthritis of right knee: Code(s): M17.11 - Unilateral primary osteoarthritis, right knee Category: Medical (5) Pain in both knees: Code(s): M25.561 - Pain in right knee; M25.562 - Pain in left knee Plan Ms. Mora presents with bilateral knee pains due to osteoarthritis as well as low back pain which radiates into her right leg as well as associated right leg weakness possibly due to lumbar stenosis or a disc herniation. Thus, I will send the patient for an MRI of her lumbar spine for further evaluation. I will also see whether or not her insurance company will cover a viscosupplementation injection, such as Durolane, for both of her knees. I will see her back once the injections are approved. She will contact me prior to that time should her symptoms worsen in any way. Feel free to call me at any time should questions regarding her orthopedic management arise. I spent 22 minutes in reviewing the patient's records and imaging studies, seeing the patient and documenting in the medical record. Orders: Orders XR lumbar spine 2-3V Today M54.50 - Low back pain, unspecified MR lumbar spine wo con 05/04/25 M54.50 - Low back pain, unspecified, M79.604 - Pain in right leg Coding Level of Care Code New Pt Level 3 (38023) Complex EM visit Add On G2211 Diagnoses Low back pain M54.50 Low back pain radiating to right leg M54.50; M79.604 Osteoarthritis of left knee M17.12 Osteoarthritis of right knee M17.11 Pain in both knees M25.561; M25.562
[2025-05-03 15:04] VITALS: BMI 49.9
--- OUTSIDE RECORDS SUMMARY | 2025-05-03 18:00 | XMS_ITS | Clinical Summary ---
Author Organization [facility] Address [address] [place] [address] Phone Care Team Providers Care Mechanics Handyman Name Role Phone Physician, No Pcp Primary Care Provider Unavaila ble Allergies Active Allergy Reactions Criticality Noted Date Comments Venlafaxine 04/19/2025 Iodine 04/19/2025 Lamotrigine 04/19/2025 Brexpiprazole 04/19/2025 Medications predniSONE (DELTASONE) 20 mg tablet Take 2 tablets (40 mg total) by mouth 1 (one) time each day for 4 days. 8 each 04/20/2025 04/24/20 25 Encounters Date Type Department Care Team Description 05/01/2025 12:30 PM EST - 05/01/2025 3:15 PM EST Emergency [facility] Emergency [address] [place] [phone] Skyler Connor MD Mogul, Ashley, MD Sprain of right knee, unspecified ligament, initial encounter (Primary Dx); Arthritis of right knee Discharge Disposition: Home or Self Care 04/19/2025 1:38 PM EDT - 04/19/2025 5:46 PM EDT Emergency [facility] Emergency [address] [place] [phone] Perico Ambrocio MD Right leg swelling (Primary Dx); COPD exacerbation (CMS/HCC V24, CMS/FORMERLY [facility] V28) Discharge Disposition: Home or Self Care from Last 3 Months Medical History Medical History Date Comments COPD (chronic obstructive pulmonary disease) (CM S/HCC V24, CMS/HCC V28) Kidney stones Disease of thyroid gland Asthma Osteoarthritis DJD (degenerative joint disease) Social History Tobacco Use Types Packs/Day Years Used Date Smoking Tobacco: Never Smokeless Tobacco: Never Tobacco Cessation:Counseling Given: Not Answered Comments Unknown Sex and Gender Information Value Date Recorded Sex Assigned at Not on file Legal Sex Female 10:29 AM EDT Gender Identity Not on file Sexual Orientation Not on file Obstetrics History Last Filed Vital Signs Vital Sign Reading [...] Mass Index 351.61 05/01/2025 1:22 PM EST Plan of Treatment Health Maintenance Due Date Last Done Comments Breast Cancer Screening 1979 Colorectal Cancer Screening: Colonoscopy 1979 DTaP,Tdap,and Td Vaccines (1 - Tdap) 1998 Hepatitis B Vaccines (1 of 3 - 19+ 3-dose series) 1998 Pneumococcal Vaccine: Pediat rics (0 to 5 Years) and At-Risk Patients (6 to 49 Years) (1 of 2 - PCV) 1998 Cervical Cancer Screening: P ap Smear 2000 HPV Vaccines (1 - 3-dose SCD M series) 2006 Depression Screening 06/30/2024 COVID-19 Vaccine ( - 2023-2 5 season) 2025 Influenza Vaccine (#1) 2025 HIV Screening 04/19/2025 Hepatitis C Screening 04/19/2025 Social Influencers of Health Screening 04/19/2025 RSV Immunization Adult Patie nts (1 - 1-dose 75+ series) 2054 HIB Vaccines Aged Out No longer eligi ble based on patient's age to complete this topic Hepatitis A Vaccines Aged Out No long er eligible based on patient's age to complete this topic IPV Vaccines Aged Out No longer eligi ble based on patient's age to complete this topic MMR Vaccines Aged Out No longer eligi ble based on patient's age to complete this topic Meningococcal ACWY Vaccine Aged Out N o longer eligible based on patient's age to complete this topic Meningococcal B Vaccine Aged Out No l onger eligible based on patient's age to complete this topic RSV Immunization Patients Un aly 20 months Aged Out No longer eligible b ased on patient's age to complete this topic Varicella Vaccines Aged Out No longer eligible based on patient's age to complete this topic Procedures Procedure Name Priority Date/Time Associated Diagnosis Comments XR KNEE 4+ VIEWS RIGHT STAT 2:37 PM EST ECG ANNOTATED 04/20/2025 URINALYSIS WITH REFLEX MICROSCOPIC STAT 04/19/2025 3:47 PM EDT URINALYSIS WITH REFLEX MICROSCOPIC STAT 04/19/2025 3:47 PM EDT ECG 12-LEAD STAT 04/19/2025 2:24 PM EDT TROPONIN I HIGH SENSITIVITY STAT 04/19/2025 2:10 PM EDT XR CHEST 2 VIEWS STAT 04/19/2025 12:3 0 PM EDT [id number], RSV, FLU A AND B QUALITATIVE RT-PCR, INTERNAL LAB STAT 04/19/2025 11:43 AM EDT CBC WITH AUTO DIFFERENTIAL STAT 04/19/2025 11:42 AM EDT CBC AND DIFFERENTIAL STAT 04/19/2025 11:42 AM EDT ACTIVATED PARTIAL THROMBOPLASTIN TIME STAT 04/19/2025 11:42 AM EDT PROTHROMBIN TIME WITH INR STAT 04/19/2025 11:42 AM EDT MAGNESIUM STAT 04/19/2025 11:42 AM EDT HCG, SERUM, QUALITATIVE STAT 04/19/20 11:42 AM EDT COMPREHENSIVE METABOLIC PANEL STAT 04/19/2025 11:42 AM EDT B-TYPE NATRIURETIC PEPTIDE STAT 04/19/2025 11:42 AM EDT TROPONIN I HIGH SENSITIVITY STAT 04/19/2025 11:42 AM EDT VAS US DUPLEX LOWER EXT VENOUS RIGHT STAT 04/19/2025 11:23 AM EDT Right leg swelling from Last 3 Months Results * XR Knee 4+ Views Right [...] Signed Date: 05/01/2025 14:45 ET Workstation ID: [id number] Transcribed By: Self Edit Transcribed Date: 05/01/2025 [...] hemarthrosis. Procedure Note Prabhakar Roman MD - 11/02/2025 EXAMINATION: RIGHT KNEE CLINICAL INFORMATION: Injury. Pain [...] Signed Date: 05/01/2025 14:45 ET Workstation ID: [id number] Transcribed By: Self Edit Transcribed Date: 05/01/2025 14:43 ET Skyler Connor MD IMG XR PROCEDURES Final Result * ECG-Annotated (04/20/2025) Provider Onbase ECG ORDERABLES Final Result * Urinalysis with reflex microscopic (04/19/2025 3:47 PM EDT) Specific [place] Urine 1.011 1.003 - 1.030 LAB URINALYSIS - AUTOMATED METHOD 04/19/2025 4:11 PM EDT [facility] pH, Urine 6.0 5.0 - 8.0 pH LAB URINALYSIS - AUTOMATED METHOD 04/19/2025 4:11 PM EDT [facility] Leukocytes, Urine Negative Negative LAB URINALYSIS - AUTOMATED METHOD 04/19/2025 4:11 PM EDT [facility] Nitrite, Urine Negative Negative LAB URINALYSIS - AUTOMATED METHOD 04/19/2025 4:11 PM [facility] Protein, Urine Negative <=Trace mg/dL LAB URINALYSIS - AUTOMATED METHOD 04/19/2025 4:11 PM EDT [facility] Glucose, Urine Negative Negative mg/dL LAB URINALYSIS - AUTOMATED METHOD 04/19/2025 4:11 PM EDT [facility] Ketones, Urine Negative Negative mg/dL LAB URINALYSIS - AUTOMATED METHOD 04/19/2025 4:11 PM EDT [facility] Urobilinogen, Urine 0.2 0.2 - 1.0 mg/dL LAB URINALYSIS - AUTOMATED METHOD 04/19/2025 4:11 PM EDT [facility] Bilirubin, Urine Negative Negative LAB URINALYSIS - AUTOMATED METHOD 04/19/2025 4:11 PM EDT [facility] Blood, Urine Negative Negative LAB URINALYSIS - AUTOMATED METHOD 04/19/2025 4:11 PM EDT [facility] Urine Urine specimen obtained by clean catch procedure / Unknown Non-blood Collection / Unknown 04/19/2025 3:47 PM EDT 04/19/2025 3:57 PM EDT us Perico Ambrocio MD LAB URINE ORDERABLES Final Resul t [facility] [address] [place] [address], * 12-Lead ECG (04/19/2025 2:24 PM EDT) Ventricular Rate ECG 63 BPM GEMUSE Atrial Rate 63 BPM GEMUSE P-R Interval 152 ms GEMUSE QRS Duration 80 ms GEMUSE Q-T Interval 434 ms GEMUSE QTc 444 ms GEMUSE P Wave [place] 72 degrees GEMUSE R [place] 39 degrees GEMUSE T [place] 53 degrees GEMUSE ECG Interpretation Normal sinus rhythm Normal ECG No previous ECGs available Confirmed by Mariam AMBROSE JOHN ([id number]) on 04/20/2025 7:11:23 PM GEMUSE 04/19/2025 2:24 PM EDT 04/20/2025 7:11 PM EDT us Perico Ambrocio MD ECG ORDERABLES Final Result GEMUSE * Troponin I High Sensitivity (04/19/2025 2:10 PM EDT) Only the most recent of2 resultswithin the time period is included. High Sensitivity Troponin I 7 <=54 ng/L LAB CHEMISTRY METHOD 04/19/2025 3:39 PM EDT [facility] Blood Venous blood specimen / Unknown Venipuncture / Unknown 04/19/2025 2:10 PM EDT 04/19/2025 2:45 PM EDT Narrative [facility] - 04/19/2025 3:39 PM EDT High levels of biotin in samples may falsely decrease hsTroponin values. Use caution when interpreting hsTroponin results in patients taking biotin who exhibit renal impairment (eGFR <60) or in patients taking more than 20 mg/day of biotin. us Perico Ambrocio MD LAB BLOOD ORDERABLES Final Resul t [facility] [address] [place] [address], [place] [phone] * XR Chest 2 Views (04/19/2025 12:30 PM EDT) Anatomical Region Laterality Modality Body Radiographic Polly ging 04/19/2025 12:4 7 PM EDT Impressions 04/19/2025 12:48 PM EDT FINDINGS/IMPRESSION: Lungs are clear. No pleural effusion or pneumothorax. Cardiac silhouette and bones are normal. -------- FINAL REPORT -------- Dictated By: BRANDT JUNE Dictated Date: 04/19/2025 12:47 ET Assigned Physician: BRANDT JUNE Reviewed and Electronically Signed By: BRANDT JUNE Signed Date: 04/19/2025 12:48 ET Workstation ID: [id number] Transcribed By: Self Edit Transcribed Date: 04/19/2025 12:47 ET Narrative 04/19/2025 12:48 PM EDT XR CHEST 2 VIEWS INDICATION: Cough, shortness of breath TECHNIQUE: XR CHEST 2 VIEWS COMPARISON: No priors available. Procedure Note Brandt June MD - 04/19/2025 XR CHEST 2 VIEWS INDICATION: Cough, shortness of breath TECHNIQUE: XR CHEST 2 VIEWS COMPARISON: No priors available. IMPRESSION: FINDINGS/IMPRESSION: Lungs are clear. No pleural effusion orpneumothorax. Cardiac silhouette and bones are normal. -------- FINAL REPORT -------- Dictated By: BRANDT JUNE Dictated Date: 04/19/2025 12:47 ET Assigned Physician: BRANDT JUNE Reviewed and Electronically Signed By: BRANDT JUNE Signed Date: 04/19/2025 12:48 ET Workstation ID: [id number] Transcribed By: Self Edit Transcribed Date: 04/19/2025 12:47 ET Perico Ambrocio MD IMG XR PROCEDURES Final Result * [id number], RSV, Influenza A and B qualitative RT-PCR (04/19/2025 11:43 AM EDT) Influenza A PCR Not Detected Not Detected LAB MICROBIOLOGY METHOD 04/19/2025 12:57 PM EDT [facility] Influenza B PCR Not Detected Not Detected LAB MICROBIOLOGY METHOD 04/19/2025 12:57 PM EDT [facility] RSV PCR Not Detected Not Detected LAB MICROBIOLOGY METHOD 04/19/2025 12:57 PM EDT [facility] SARS COV-2 Not Detected Not Detected LAB MICROBIOLOGY METHOD 04/19/2025 12:57 PM EDT [facility] Swab Nasopharyngeal structure / Unknown Non-blood Collection / Unknown 04/19/2025 11:43 AM EDT 04/19/2025 12:08 PM EDT Perico Ambrocio MD LAB MICROBIOLOGY - GENERAL ORDER NAVIN Final Result [facility] [address] [place] [address], * (ABNORMAL) CBC auto differential (04/19/2025 11:42 AM EDT) WBC 10.8 4.8 - 10.8 K/mcL LAB HEMETOLOGY METHOD 04/19/2025 12:26 PM EDT [facility] RBC 4.60 3.80 - 4.80 M/mcL LAB HEMETOLOGY METHOD 04/19/2025 12:26 PM EDT [facility] Hemoglobin 12.9 11.5 - 16.0 g/dL LAB HEMETOLOGY METHOD 04/19/2025 12:26 PM EDT [facility] Hematocrit 41.0 35.0 - 47.0 % LAB HEMETOLOGY METHOD 04/19/2025 12:26 PM EDT [facility] MCV 88.4 79.0 - 98.0 FL LAB HEMETOLOGY METHOD 04/19/2025 12:26 PM EDT [facility] MCH 27.8 27.0 - 32.0 pcg LAB HEMETOLOGY METHOD [facility]/19[facility]25 [facility] MCHC 31.5(L) 32.0 - 37.0 g/dL LAB HEMETOLOGY METHOD 04/19/2025 12:26 PM EDT [facility] RDW 14.2 11.0 - 15.0 % LAB HEMETOLOGY METHOD 04/19/2025 12:26 PM EDT [facility] Platelets 440(H) 130 - 400 K/mcL LAB HEMETOLOGY METHOD 04/19/2025 12:26 PM EDT [facility] MPV 10.0 7.0 - 11.0 FL LAB HEMETOLOGY METHOD 04/19/2025 12:[facility] NRBC 0.0 <1.0 % LAB HEMETOLOGY METHOD 04/19/2025 12:26 PM [facility] NRBC Absolute 0.00 <0.10 K/mcL LAB HEMETOLOGY METHOD 04/19/2025 12:26 PM [facility] Neutrophils Relative 64.2 % LAB HEMETOLOGY METHOD 04/19/2025 12:26 PM [facility] Lymphocytes Relative 22.1 % LAB HEMETOLOGY METHOD 04/19/2025 12:26 PM [facility] Monocytes Relative 8.9 % LAB HEMETOLOGY METHOD 04/19/2025 12:26 PM [facility] Eosinophils Relative 3.7 % LAB HEMETOLOGY METHOD 04/19/2025 12:26 PM [facility] Basophils Relative 0.5 % LAB HEMETOLOGY METHOD 04/19/2025 12:26 PM [facility] Immature Granulocytes Relative 0.6 % LAB HEMETOLOGY METHOD 04/19/2025 12:26 PM [facility] Neutrophils Absolute 6.92 1.50 - 7.00 K/mcL LAB HEMETOLOGY METHOD 04/19/2025 12:26 PM [facility] Lymphocytes Absolute 2.38 1.00 - 5.00 K/mcL LAB HEMETOLOGY METHOD 04/19/2025 12:26 PM [facility] Monocytes Absolute 0.96 0.20 - 1.00 K/mcL LAB HEMETOLOGY METHOD 04/19/2025 12:26 PM [facility] Eosinophils Absolute 0.40 0.00 - 0.50 K/mcL LAB HEMETOLOGY METHOD 04/19/2025 12:26 PM [facility] Basophils Absolute 0.05 0.00 - 0.20 K/mcL LAB HEMETOLOGY METHOD 04/19/2025 12:26 PM EDT [facility] Immature Granulocytes Absolute 0.07(H) 0.00 - 0.03 K/mcL LAB HEMETOLOGY METHOD 04/19/2025 12:26 PM EDT [facility] Blood Venous blood specimen / Unknown Venipuncture / Unknown 04/19/2025 11:42 AM EDT 04/19/2025 12:10 PM EDT us Perico Ambrocio MD LAB BLOOD ORDERABLES Final Resul t Performing Organization Address City/[facility]/ZIP Co de Phone Number [facility] [address] [place] [address], [place] [phone] * APTT (04/19/2025 11:42 AM EDT) aPTT 39.1 24.1 - 39.3 sec LAB COAGULATION METHOD 04/19/2025 12:24 PM EDT [facility] Blood Venous blood specimen / Unknown Venipuncture / Unknown 04/19/2025 11:42 AM EDT 04/19/2025 12:10 PM EDT us Perico Ambrocio MD LAB BLOOD ORDERABLES Final Resul t Performing Organization Address City/[facility]/ZIP Co de Phone Number [facility] [address] [place] [address], [place] [phone] * Protime-INR (04/19/2025 11:42 AM EDT) Protime 12.1 10.6 - 13.9 sec LAB COAGULATION METHOD 04/19/2025 12:24 PM EDT [facility] INR 1.0 LAB COAGULATION METHOD 04/19/2025 12:24 PM EDT [facility] Blood Venous blood specimen / Unknown Venipuncture / Unknown 04/19/2025 11:42 AM EDT 04/19/2025 12:10 PM EDT us Perico Ambrocio MD LAB BLOOD ORDERABLES Final Resul t Performing Organization Address City/[facility]/ZIP Co de Phone Number [facility] [address] [place] [address], [place] [phone] * hCG Qualitative (04/19/2025 11:42 AM EDT) hCG Qual Negative Negative 04/19/2025 12:52 PM EDT [facility] Blood Venous blood specimen / Unknown Venipuncture / Unknown 04/19/2025 11:42 AM EDT 04/19/2025 12:10 PM EDT us Perico Ambrocio MD LAB BLOOD ORDERABLES Final Resul t Performing Organization Address [facility] Co de Phone Number [facility] [address] [place] [address], [place] [phone] * B-Type Natriuretic Peptide (BNP) (04/19/2025 11:42 AM EDT) Pathologist [facility] BNP 93 <=100 pcg/mL LAB CHEMISTRY METHOD 04/19/2025 12:52 PM EDT [facility] Blood Venous blood specimen / Unknown Venipuncture / Unknown 04/19/2025 11:42 AM EDT 04/19/2025 12:10 PM EDT us Perico Ambrocio MD LAB BLOOD ORDERABLES Final Resul t Performing Organization Address [facility]/ZIP Co de Phone Number [facility] [address] [place] [address], [place] [phone] * Magnesium (04/19/2025 11:42 AM EDT) Magnesium 1.9 1.9 - 2.6 mg/dL LAB CHEMISTRY METHOD 04/19/2025 12:45 PM EDT [facility] Blood Venous blood specimen / Unknown Venipuncture / Unknown 04/19/2025 11:42 AM EDT 04/19/2025 12:10 PM EDT Perico Ambrocio MD LAB BLOOD ORDERABLES Final Resul t [facility] [address] [place] [address], * Comprehensive Metabolic Panel (CMP) (04/19/2025 11:42 AM EDT) Sodium 138 133 - 145 mmol/L LAB CHEMISTRY METHOD 04/19/2025 12:48 PM [facility] Potassium 4.3 3.5 - 5.5 mmol/L LAB CHEMISTRY METHOD 04/19/2025 12:48 PM [facility] Chloride 107 96 - 110 mmol/L LAB CHEMISTRY METHOD 04/19/2025 12:48 PM [facility] CO2 24 21 - 32 mmol/L LAB CHEMISTRY METHOD 04/19/2025 12:48 PM [facility] Anion Gap 7 3 - 11 LAB CHEMISTRY METHOD 04/19/2025 12:48 PM [facility] Glucose 92 70 - 100 mg/dL LAB CHEMISTRY METHOD 04/19/2025 12:48 PM [facility] BUN 9 5 - 25 mg/dL LAB CHEMISTRY METHOD 04/19/2025 12:48 PM [facility] Creatinine 0.88 0.50 - 1.10 mg/dL LAB CHEMISTRY METHOD 04/19/2025 12:48 PM [facility] eGFR 83 >=60 mL/min/1. 73m2 LAB CHEMISTRY METHOD 04/19/2025 12:48 PM [facility] Comment:Calculation based on the Chronic Kidney Disease Epidemiology Collaboration (CKD-EPI) equation refit without adjustment for race. BUN/Creatinine Ratio 10.2 LAB CHEMISTRY METHOD 04/19/2025 12:48 PM EDT [facility] Calcium 9.6 8.5 - 10.5 mg/dL LAB CHEMISTRY METHOD 04/19/2025 12:48 PM EDT [facility] AST (SGOT) 30 10 - 42 unit/L LAB CHEMISTRY METHOD 04/19/2025 12:48 PM EDT [facility] ALT (SGPT) 28 10 - 60 unit/L LAB CHEMISTRY METHOD 04/19/2025 12:48 PM EDT [facility] Alkaline Phosphatase 105 42 - 121 unit/L LAB CHEMISTRY METHOD 04/19/2025 12:48 PM T [facility] Total Protein 6.9 6.0 - 8.0 g/dL LAB CHEMISTRY METHOD 04/19/2025 12:48 PM [facility] Albumin 3.6 3.2 - 5.0 g/dL LAB CHEMISTRY METHOD 04/19/2025 12:48 PM [facility] Total Bilirubin 0.2 0.0 - 1.4 mg/dL LAB CHEMISTRY METHOD 04/19/2025 12:48 PM T [facility] Blood Venous blood specimen / Unknown Venipuncture / Unknown 04/19/2025 11:42 AM EDT 04/19/2025 12:10 PM EDT us Perico Ambrocio MD LAB BLOOD ORDERABLES Final Resul t [facility] [address] [place] [address], * Vascular US Duplex Lower Extremity Venous Right (04/19/2025 11:23 AM EDT) Anatomical Region Laterality Modality Vascular, Abdomen Ultrasound 04/19/2025 11:3 5 AM EDT Impressions 04/19/2025 11:36 AM EDT NO RIGHT LOWER EXTREMITY DEEP VENOUS THROMBOSIS. -------- FINAL REPORT -------- Dictated By: BRANDT JUNE Dictated Date: 04/19/2025 11:35 ET Assigned Physician: BRANDT JUNE Reviewed and Electronically Signed By: BRANDT JUNE Signed Date: 04/19/2025 11:36 ET Workstation ID: [id number] Transcribed By: Self Edit Transcribed Date: 04/19/2025 11:35 ET Narrative 04/19/2025 11:36 AM EDT PROCEDURE: VAS US DUPLEX LOWER EXT VENOUS RIGHT INDICATION: Edema TECHNIQUE: 2-D and color Doppler imaging of the right lower extremity venous vasculature with compression and augmentation maneuvers. COMPARISON: No priors available. FINDINGS: There is normal flow, compression, and augmentation from the common femoral through the popliteal vein. Visualized calf veins are patent. Procedure Note Brandt June MD - 04/19/2025 PROCEDURE: VAS US DUPLEX LOWER EXT VENOUS RIGHT INDICATION: Edema TECHNIQUE: 2-D and color Doppler imaging of the right lower extremityvenous vasculature with compression and augmentation maneuvers. COMPARISON: No priors available. FINDINGS: There is normal flow, compression, and augmentation from the commonfemoral through the popliteal vein. Visualized calf veins are patent. IMPRESSION: NO RIGHT LOWER EXTREMITY DEEP VENOUS THROMBOSIS. -------- FINAL REPORT -------- Dictated By: BRANDT JUNE Dictated Date: 04/19/2025 11:35 ET Assigned Physician: BRANDT JUNE Reviewed and Electronically Signed By: BRANDT JUNE Signed Date: 04/19/2025 11:36 ET Workstation ID: [id number] Transcribed By: Self Edit Transcribed Date: 04/19/2025 11:35 ET us Perico Ambrocio MD CV VASCULAR PROCEDURES Final Res ult from Last 3 Months Insurance [facility] Care Teams Mechanics Handyman Relationship Specialty Start Date End Date Physician, No Pcp PCP - General 05/01/25
--- OUTSIDE RECORDS SUMMARY | 2025-05-03 18:00 | XMS_ITS | Clinical Summary ---
Author Organization [facility] Address [address] [place] [address] [place] [phone] Phone Care Team Providers Care Ironworker [employer] Name Role Phone Annalise Holm Angélica DIE CASTING MACHINE SETTER Primary Care Provider Social History Tobacco Use Types Packs/Day Years [...] Description 06/20/2025 3:00 PM EST [facility] [address] [place] [phone] Sandra Vargas MD, MPH [address] [place] [phone] [email or web address] Maintenance Due Date Last Done Comments [...] Medical Devices Not on file Insurance [facility] [employer] 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 It is not the complete legal health record.[facility]
== END 2025-05-03 15:50 | disposition home or self-care (01) ==
LOC: HO.HOS 14:56
PROVIDERS: PCP Internal Medicine; Visit Provider Orthopaedic Surgery
DX: M54.50 Low back pain, unspecified (principal); M79.604 Pain in right leg; M17.0 Bilateral primary osteoarthritis of knee; M25.561 Pain in right knee; M25.562 Pain in left knee
CPT/HCPCS: 99203

== ENCOUNTER 2025-05-03 14:55 | Outpatient (REF) | payer OTHER, SELFPAY ==
--- NOTE | ~2025-05-03 | XR_ITS ---
EXAMINATION: XR LUMBOSACRAL SPINE CLINICAL INFORMATION: M54.50 - Low back pain, unspecified COMPARISON: None available. TECHNIQUE: AP and lateral views FINDINGS: Patient's large body habitus. S-shaped curvature of the thoracolumbar spine. Multilevel marginal osteophyte formation and endplate sclerosis throughout the axial skeleton. No acute cortical disruption or gross malalignment. No lytic or blastic lesions. XR/XR lumbar spine 2-3V IMPRESSION: Scoliosis and multilevel spondylosis, thoracolumbar spine. Electronically signed by: Chi Hitchcock MD 05/03/2025 03:20 PM [facility] KRUEGER
== END 2025-05-03 14:56 | disposition home or self-care (01) ==
LOC: HO.HOSX 14:55
PROVIDERS: PCP Internal Medicine; Visit Provider Orthopaedic Surgery
DX: M17.0 Bilateral primary osteoarthritis of knee (principal); M54.50 Low back pain, unspecified; M79.604 Pain in right leg
CPT/HCPCS: 72100; 99202

== ENCOUNTER → 2025-05-03 15:11 | Outpatient (BNV) | payer OTHER, SELFPAY | PROVIDERS: PCP Internal Medicine; Visit Provider Radiology Diagnostic Radiology | DX: M47.815 Spondylosis without myelopathy or radiculopathy, thoracolumbar region (principal); M41.85 Other forms of scoliosis, thoracolumbar region | CPT/HCPCS: 72100 ==

== ENCOUNTER 2025-05-09 13:44 | Outpatient (AMB) | payer OTHER, SELFPAY ==
--- NOTE | 2025-05-09 13:58 | MHC.PC.OV ---
Vital Signs 05/09/25 13:59 Height 5 ft 1 in Weight 265 lb 4 oz BMI 50.1 BP 100/66 Blood Pressure Location Rt brachial Position Sitting Pulse 63 Pulse Source Pulse Oximeter Temp 97.1 F Temp Source Temporal Artery Scan Pulse Oximetry (%) 96 Oxygen Delivery Method Room Air Intake Visit Reasons: Paperwork Intake Note: Patient is here for a Pre-op for Dental procedure scheduled with Terrence Candi (F:[phone]) on unknown. Wastewater Plant Operator Required: No Portable Trackman: Not Required per policy Accompanied by: Self / Same As Patient Allergies brexpiprazole (From Rexulti) Allergy (Severe, Verified 05/09/25 13:59) Rash shellfish derived (shellfish) Allergy (Severe, Verified 05/09/25 13:59) Irritable lamotrigine (From Lamictal) Adverse Reaction (Severe, Verified 05/09/25 13:59) Rash venlafaxine (From Effexor) Adverse Reaction (Severe, Verified 05/09/25 13:59) Rash Medication List - Last Reconciled 05/09/25 by Stevie Rosales MD acetaminophen ER (Tylenol Arthritis Pain) 650 mg PO Q8H PRN atorvastatin (Lipitor) 10 mg PO DAILY budesonide-formoterol 160-4.5 mcg/actuation (Symbicort) 2 puffs inhalation BID diclofenac sodium 1% (Voltaren Arthritis Pain) 4 grams topical QID hydroxyzine HCl 50 mg PO TID PRN ibuprofen 800 mg PO Q8H PRN [Knee brace As directed] levothyroxine (Synthroid) 175 mcg PO DAILY melatonin 6 mg (2 x 3 mg) PO BEDTIME PRN methocarbamol 1,000 mg (2 x 500 mg) PO BID nicotine 1 patch transdermal DAILY oxcarbazepine 900 mg (1.5 x 600 mg) PO BID permethrin 5% 1 appl topical Q14D 2 doses trazodone 200 mg (2 x 100 mg) PO BEDTIME Tobacco use date assessed: 05/09/25 Dental Screening Dental Screen Date: 04/28/25 HPI HPI Comments History of Present Illness Details The patient is a 44-year-old female presenting for pre-operative clearance for a dental procedure, medication refills, and management of chronic pain. The patient has severe osteoarthritis of the knee, which causes pain and irritation, making it difficult to fully straighten her leg. She previously completed a 16-week course of physical therapy three times a week, which did not provide relief. She also has a history of low back pain and was recently seen by an orthopedist who ordered an MRI after reviewing back x-rays. About 6-7 years ago, imaging revealed degenerative disc disease and herniated discs in her lower back. The patient requests refills for oxcarbazepine 900 mg twice a day, which she takes as a mood stabilizer, and trazodone 200 mg nightly, as she has run out of both. She has an upcoming appointment with a psychiatrist in about three weeks. Her other medications include Tylenol, atorvastatin, Symbicort, hydroxyzine, ibuprofen, methocarbamol, nicotine patch, and levothyroxine, which was recently increased to 175 mcg. She is seeking medical clearance for upcoming dental procedures, which include removing fragments of a tooth that broke off at the gum line on the right side and cutting a gum flap overlying a partially erupted wisdom tooth on the left side. The patient denies any known history of heart problems. EKG in clinic is normal. Recent labs were within normal limits. [facility] Medical History COPD (chronic obstructive pulmonary disease) Other intervertebral disc degeneration, 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 Pre-diabetes Arthritis of right knee Kidney stones Surgical History H/O lithotripsy Social History Household Members: Other Housing: Other Housing Other:: [facility] Alcohol intake: never Patient Tobacco Use Status: Former Tobacco user Tobacco use type: Cigarette Cigarettes Per Day: 0.5 e-Cigarette/Vaping Use: Never Used Second Hand Smoke Exposure: Yes service: No Current occupational status: unemployed Cognitive needs: No Hearing needs: No Vision needs: Yes Questionnaire Thrive Questionnaire Date Thrive assessed: 04/05/25 I am a: Patient What is your living situation today?: I have a steady place to live Within the past 12 months, did the food you bought not last and you didn't have the money to get more?: Often true Within the past 12 months, did you worry whether your food would run out before you got money to buy more?: Often true Do you have trouble paying for medicines?: No Do you have trouble getting transportation to medical appointments?: No Do you have trouble paying your heating and electricity bill?: No Do you have trouble taking care of your child, family member or friend?: No Do you have trouble with day-to-day activities such as bathing, preparing meals, shopping, managing finances, etc.?: Yes Are you currently unemployed and looking for a job?: No Are you interested in more education?: Yes THRIVE Score: 2 VOLODYMYR-7 AMB Questionnaire VOLODYMYR-7 Date VOLODYMYR - 7 assessed: 04/05/25 Source: Developed by Drs. Phan Land, Lilian Brady, Francois Salguero and colleagues, with an educational nayely from [employer]. Review of Systems Const Details: As per HPI. Physical exam (Primary Care) Vital Signs: Last Vital Signs Temp 97.1 F 05/09/25 13:59 Pulse 63 05/09/25 13:59 BP 100/66 05/09/25 13:59 Pulse Ox 96 05/09/25 13:59 Oxygen Delivery Method Room Air 05/09/25 13:59 BMI result Body Mass Index 50.1 Tobacco/Smoking Status: Tobacco use Status Tobacco use date assessed 05/09/25 05/09/25 14:03 Patient Tobacco Use Status Former Tobacco user 05/09/25 14:03 Tobacco use type Cigarette 05/09/25 14:03 e-Cigarette/Vaping Use Never Used 05/09/25 14:03 Thrive Assessment: Date of Thrive Assessment Date Thrive assessed 04/05/25 05/09/25 14:03 Const Other: Pertinent findings are in BOLD GENERAL APPEARANCE NAD, activity normal for age, well developed/ well nourished, no cyanosis, pallor, or diaphoresis. EYES lids/conjunctiva normal. EARS/NOSE/THROAT Mucous membranes moist, nares normal, lips/teeth normal uvula midline without oral pharyngeal erythema, exudate or swelling TMs normal bilaterally. No lymphangitis/lymphedema. HEAD/NECK normocephalic atraumatic, no facial trauma, neck is supple. RESPIRATORY respiratory effort normal, speaks in full sentences, no tripod position, no accessory muscle use. Lungs clear to auscultation without rhonchi, wheezes, rales CARDIAC Regular rate and rhythm, no edema. ABDOMINAL Soft, ND/NT. No evidence of fluid wave. No pulsatile masses on exam, rebound tenderness, Reynolds sign or pain over Mcburney's point. MUSCLES/EXTREMITIES No abnormal range of motion, no swelling. Knee brace on left knee. SKIN Warm, pink and dry. No rashes, dermatoses, petechiae or lesions. NEUROLOGICAL Speech is clear and appropriate. Normal level of consciousness. Gait and coordination are normal. 5/5 strength in all extremities. PSYCH Normal mood and affect. Judgement/competence is appropriate Office Procedures EKG 03302-[id number], Complete Coding Level of Care Code Est Pt Level 4 (62091) Diagnoses Pre-operative clearance Z01.818 Class 3 severe obesity due to excess calories without serious comorbidity with body mass index (BMI) of 50.0 to 59.9 in adult E66.01; Z68.43; Z68.43 Obesity type: due to excess calories Obesity classification: adult class 3 (BMI >= 40) Serious obesity comorbidity presence: without serious comorbidity Body mass index: BMI 50.0-59.9 Primary osteoarthritis of right knee M17.11 Osteoarthritis type: primary Cigarette nicotine dependence without complication F17.210 Nicotine product type: cigarettes Substance use status: uncomplicated Chronic midline low back pain, unspecified whether sciatica present M54.50; G89.29 Chronicity: chronic Back pain laterality: midline Sciatica presence: unspecified whether sciatica present Moderate episode of recurrent major depressive disorder F33.1 Major depression recurrence: recurrent Active/Remission status: currently active Major depression episode severity: moderate CPT Codes EKG - CPT: 10046-[id number], Complete ([id number]) Time Spent (min) 30 Assessment & Plan Assessment & Plan (1) Pre-operative clearance: Code(s): Z01.818 - Encounter for other preprocedural examination Category: Medical Plan: Patient's chart, most recent labs, imaging were reviewied. EKG done in clinic was normal. Patient is cleared for surgery. No change in medications advised at this time. (2) Obesity: Code(s): E66.9 - Obesity, unspecified Category: Medical Qualifiers: Obesity type: due to excess calories Obesity classification: adult class 3 (BMI >= 40) Serious obesity comorbidity presence: without serious comorbidity Body mass index: BMI 50.0-59.9 Qualified Code(s): E66.01 - Morbid (severe) obesity due to excess calories; Z68.43 - Body mass index [BMI] 50.0-59.9, adult; Z68.43 - Body mass index [BMI] 50.0-59.9, adult Plan: Re-enforced diet and lifestyle changes. Patient relies on food stamps and she eats what is available for her through a program and the options are usually unhealthy. Weight management referral placed. (3) Osteoarthritis of right knee: Code(s): M17.11 - Unilateral primary osteoarthritis, right knee Category: Medical Qualifiers: Osteoarthritis type: primary Qualified Code(s): M17.11 - Unilateral primary osteoarthritis, right knee Plan: - The patient's pain is secondary to severe osteoarthritis, for which a 16-week course of physical therapy was ineffective. - Recent knee xrays showed severe bilateral ostheoarthritis. - Prescribed lidocaine 5% patches and Voltaren gel for topical pain management. - Advised to continue using dgnj-hdi-suzmokz analgesics like Tylenol and ibuprofen. - Discussed that surgery is an eventual option if conservative measures fail. - Emphasized the importance of weight loss for symptom relief. (4) Nicotine dependence: Code(s): F17.200 - Nicotine dependence, unspecified, uncomplicated Category: Medical Qualifiers: Nicotine product type: cigarettes Substance use status: uncomplicated Qualified Code(s): F17.210 - Nicotine dependence, cigarettes, uncomplicated Plan: - The patient has shown excellent progress, reducing her smoking to one cigarette in the past three weeks without patch use. - Provided encouragement and education that cravings will continue to lessen over time. (5) Lower back pain: Comment: Radiating to her legs. Code(s): M54.50 - Low back pain, unspecified Category: Medical Qualifiers: Chronicity: chronic Back pain laterality: midline Sciatica presence: unspecified whether sciatica present Qualified Code(s): M54.50 - Low back pain, unspecified; G89.29 - Other chronic pain Plan: - The patient was recently evaluated by orthopedics for back pain. - An MRI of the back has been ordered by the specialist, as recent x-rays were not revealing. - Patient to follow up with orthopedics pending MRI results. (6) MDD (major depressive disorder): Code(s): F32.9 - Major depressive disorder, single episode, unspecified Category: Medical Qualifiers: Major depression recurrence: recurrent Active/Remission status: currently active Major depression episode severity: moderate Qualified Code(s): F33.1 - Major depressive disorder, recurrent, moderate Plan: - The patient ran out of her oxcarbazepine (mood stabilizer) and trazodone (for sleep). - A one-month supply of oxcarbazepine 900 mg BID and trazodone 200 mg nightly, each with one refill, was prescribed to bridge the gap until her psychiatry appointment in approximately three weeks. - Patient to follow-up with her therapist and psychiatrist for ongoing management. Plan I discussed the management of the patient's severe knee osteoarthritis, noting that while physical therapy was unsuccessful, we could try new topical medications like lidocaine patches and Voltaren gel. I emphasized that weight loss is important for her joint health, while also acknowledging the dietary challenges she faces in her current living situation. I have provided a bridge prescription for her oxcarbazepine and trazodone to ensure she does not go without them before her psychiatry appointment in three weeks. I confirmed that she is medically cleared for her upcoming dental surgery, as she is generally healthy with no known contraindications like heart issues. I praised her significant progress with smoking cessation and provided encouragement to continue her efforts toward becoming completely smoke-free. Orders: Orders AMB EKG-In Office Today Z13.6 - Encounter for screening for cardiovascular disorders Medications: New trazodone 200 mg (2 x 100 mg) PO BEDTIME 30 tabs 2RF oxcarbazepine 900 mg (1.5 x 600 mg) PO BID 60 tabs 1RF lidocaine 4% 1 patch topical DAILY PRN 15 ea 0RF pain diclofenac sodium 1% (Voltaren Arthritis Pain) apply to single elbow, wrist or hand; for hand includes palm/fingers/back of hand 2 grams topical QID 100 grams 0RF
[2025-05-09 13:59] VITALS: BP 100/66; PULSE 63; TEMP 36.2; O2SAT 96; BMI 50.1
--- OUTSIDE RECORDS SUMMARY | 2025-05-09 15:56 | XMS_ITS | Clinical Summary ---
Author Organization [facility] Address [address] [place] [address] Phone Care Team Providers Care Rough Rounder Name Role Phone Physician, No Pcp Primary [...] EST - 05/01/2025 3:[address] [facility] Emergency [address] [place] [phone] Skyler Connor MD Mogul, Ashley, MD Sprain of right knee, unspecified ligament, initial encounter (Primary Dx); Arthritis of right knee Discharge Disposition: Home or Self Care 04/19/2025 1:38 PM EDT - 04/19/2025 5:[address] [facility] Emergency [address] [place] [phone] Perico Ambrocio MD Right leg swelling (Primary Dx); COPD exacerbation (CMS/HCC V24, CMS/[facility] V28) Discharge Disposition: Home or Self Care [...] VIEWS STAT 04/19/2025 12:3 0 PM EDT [id number], RSV, FLU A AND B QUALITATIVE RT-PCR, [...] Signed Date: 05/01/2025 14:45 ET Workstation ID: [id number] Transcribed By: Self Edit Transcribed Date: 05/01/2025 [...] Signed Date: 05/01/2025 14:45 ET Workstation ID: [id number] Transcribed By: Self Edit Transcribed Date: 05/01/2025 14:43 ET Skyler Connor MD IMG XR PROCEDURES Final Result * ECG-Annotated (04/20/2025) Provider Onbase ECG ORDERABLES Final Result * Urinalysis with reflex microscopic (04/19/2025 3:47 PM EDT) Specific [place] Urine 1.011 1.003 - 1.030 LAB URINALYSIS - AUTOMATED METHOD 04/19/2025 4:11 PM EDT [facility] pH, Urine 6.0 5.0 - 8.0 pH LAB URINALYSIS - AUTOMATED METHOD 04/19/2025 4:11 PM EDT [facility] Leukocytes, Urine Negative Negative LAB URINALYSIS - AUTOMATED METHOD 04/19/2025 4:11 PM EDT [facility] Nitrite, Urine Negative Negative LAB URINALYSIS - AUTOMATED METHOD 04/19/2025 4:[address] [facility] Protein, Urine Negative <=Trace mg/dL LAB URINALYSIS - AUTOMATED METHOD 04/19/2025 4:11 PM EDT [facility] Glucose, Urine Negative Negative mg/dL LAB URINALYSIS - AUTOMATED METHOD 04/19/2025 4:11 PM EDT [facility] Ketones, Urine Negative Negative mg/dL LAB URINALYSIS - AUTOMATED METHOD 04/19/2025 4:11 PM EDT [facility] Urobilinogen, Urine 0.2 0.2 - 1.0 mg/dL LAB URINALYSIS - AUTOMATED METHOD 04/19/2025 4:11 PM EDT [facility] Bilirubin, Urine Negative Negative LAB URINALYSIS - AUTOMATED METHOD 04/19/2025 4:11 PM EDT [facility] Blood, Urine Negative Negative LAB URINALYSIS - AUTOMATED METHOD 04/19/2025 4:11 PM EDT [facility] Urine Urine specimen obtained by clean catch procedure / Unknown Non-blood Collection / Unknown 04/19/2025 3:47 PM EDT 04/19/2025 3:57 PM EDT us Perico Ambrocio MD LAB URINE ORDERABLES Final Resul t [facility] [address] [place] [address], * 12-Lead ECG (04/19/2025 2:24 PM EDT) Ventricular Rate ECG 63 BPM GEMUSE Atrial Rate 63 BPM GEMUSE P-R Interval 152 ms GEMUSE QRS Duration 80 ms GEMUSE Q-T Interval 434 ms GEMUSE QTc 444 ms GEMUSE P Wave [place] 72 degrees GEMUSE R [place] 39 degrees GEMUSE T [place] 53 degrees GEMUSE ECG Interpretation Normal sinus rhythm Normal ECG No previous ECGs available Confirmed by Mariam AMBROSE JOHN ([id number]) on 04/20/2025 7:11:23 PM GEMUSE 04/19/2025 2:24 PM EDT 04/20/2025 7:11 PM EDT us Perico Ambrocio MD ECG ORDERABLES Final Result GEMUSE * Troponin I High Sensitivity (04/19/2025 2:10 PM EDT) Only the most recent of2 resultswithin the time period is included. High Sensitivity Troponin I 7 <=54 ng/L LAB CHEMISTRY METHOD 04/19/2025 3:39 PM EDT [facility] Blood Venous blood specimen / Unknown Venipuncture / Unknown 04/19/2025 2:10 PM EDT 04/19/2025 2:45 PM EDT Narrative [facility] - 04/19/2025 3:39 PM EDT High levels of biotin in samples may falsely decrease hsTroponin values. Use caution when interpreting hsTroponin results in patients taking biotin who exhibit renal impairment (eGFR <60) or in patients taking more than 20 mg/day of biotin. us Perico Ambrocio MD LAB BLOOD ORDERABLES Final Resul t [facility] [address] [place] [address], [place] [phone] * XR Chest 2 Views (04/19/2025 12:30 [...] Signed Date: 04/19/2025 12:48 ET Workstation ID: [id number] Transcribed By: Self Edit Transcribed Date: 04/19/2025 [...] Signed Date: 04/19/2025 12:48 ET Workstation ID: [id number] Transcribed By: Self Edit Transcribed Date: 04/19/2025 12:47 ET Perico Ambrocio MD IMG XR PROCEDURES Final Result * [id number], RSV, Influenza A and B qualitative RT-PCR (04/19/2025 11:43 AM EDT) Influenza A PCR Not Detected Not Detected LAB MICROBIOLOGY METHOD 04/19/2025 12:57 PM EDT [facility] Influenza B PCR Not Detected Not Detected LAB MICROBIOLOGY METHOD 04/19/2025 12:57 PM EDT [facility] RSV PCR Not Detected Not Detected LAB MICROBIOLOGY METHOD 04/19/2025 12:57 PM EDT [facility] SARS COV-2 Not Detected Not Detected LAB MICROBIOLOGY METHOD 04/19/2025 12:57 PM EDT [facility] Swab Nasopharyngeal structure / Unknown Non-blood Collection / Unknown 04/19/2025 11:43 AM EDT 04/19/2025 12:08 PM EDT Perico Ambrocio MD LAB MICROBIOLOGY - GENERAL ORDER NAVIN Final Result [facility] [address] [place] [address], * (ABNORMAL) CBC auto differential (04/19/2025 11:42 AM EDT) WBC 10.8 4.8 - 10.8 K/mcL LAB HEMETOLOGY METHOD 04/19/2025 12:26 PM EDT [facility] RBC 4.60 3.80 - 4.80 M/mcL LAB HEMETOLOGY METHOD 04/19/2025 12:26 PM EDT [facility] Hemoglobin 12.9 11.5 - 16.0 g/dL LAB HEMETOLOGY METHOD 04/19/2025 12:26 PM EDT [facility] Hematocrit 41.0 35.0 - 47.0 % LAB HEMETOLOGY METHOD 04/19/2025 12:26 PM EDT [facility] MCV 88.4 79.0 - 98.0 FL LAB HEMETOLOGY METHOD 04/19/2025 12:26 PM EDT [facility] MCH 27.8 27.0 - 32.0 pcg LAB HEMETOLOGY METHOD [facility]/19[facility] MCHC 31.5(L) 32.0 - 37.0 g/dL LAB HEMETOLOGY METHOD 04/19/2025 12:26 PM EDT [facility] RDW 14.2 11.0 - 15.0 % LAB HEMETOLOGY METHOD 04/19/2025 12:26 PM EDT [facility] Platelets 440(H) 130 - 400 K/mcL LAB HEMETOLOGY METHOD 04/19/2025 12:26 PM EDT [facility] MPV 10.0 7.0 - 11.0 FL LAB HEMETOLOGY METHOD 04/19[facility]2025 12[facility] NRBC 0.0 <1.0 % LAB HEMETOLOGY METHOD 04/19/2025 12:[address] [facility] NRBC Absolute 0.00 <0.10 K/mcL LAB HEMETOLOGY METHOD 04/19/2025 12:[address] [facility] Neutrophils Relative 64.2 % LAB HEMETOLOGY METHOD 04/19/2025 12:[address] [facility] Lymphocytes Relative 22.1 % LAB HEMETOLOGY METHOD 04/19/2025 12:[address] [facility] Monocytes Relative 8.9 % LAB HEMETOLOGY METHOD 04/19/2025 12:[address] [facility] Eosinophils Relative 3.7 % LAB HEMETOLOGY METHOD 04/19/2025 12:[address] [facility] Basophils Relative 0.5 % LAB HEMETOLOGY METHOD 04/19/2025 12:[address] [facility] Immature Granulocytes Relative 0.6 % LAB HEMETOLOGY METHOD 04/19/2025 12:[address] [facility] Neutrophils Absolute 6.92 1.50 - 7.00 K/mcL LAB HEMETOLOGY METHOD 04/19/2025 12:[address] [facility] Lymphocytes Absolute 2.38 1.00 - 5.00 K/mcL LAB HEMETOLOGY METHOD 04/19/2025 12:[address] [facility] Monocytes Absolute 0.96 0.20 - 1.00 K/mcL LAB HEMETOLOGY METHOD 04/19/2025 12:[address] [facility] Eosinophils Absolute 0.40 0.00 - 0.50 K/mcL LAB HEMETOLOGY METHOD 04/19/2025 12:[address] [facility] Basophils Absolute 0.05 0.00 - 0.20 K/mcL LAB HEMETOLOGY METHOD 04/19/2025 12:26 PM EDT [facility] Immature Granulocytes Absolute 0.07(H) 0.00 - 0.03 K/mcL LAB HEMETOLOGY METHOD 04/19/2025 12:26 PM EDT [facility] Blood Venous blood specimen / Unknown Venipuncture / Unknown 04/19/2025 11:42 AM EDT 04/19/2025 12:10 PM EDT us Perico Ambrocio MD LAB BLOOD ORDERABLES Final Resul t Performing Organization Address City/[facility]/ZIP Co de Phone Number [facility] [address] [place] [address], [place] [phone] * APTT (04/19/2025 11:42 AM EDT) aPTT 39.1 24.1 - 39.3 sec LAB COAGULATION METHOD 04/19/2025 12:24 PM EDT [facility] Blood Venous blood specimen / Unknown Venipuncture / Unknown 04/19/2025 11:42 AM EDT 04/19/2025 12:10 PM EDT us Perico Ambrocio MD LAB BLOOD ORDERABLES Final Resul t Performing Organization Address City/[facility]/ZIP Co de Phone Number [facility] [address] [place] [address], [place] [phone] * Protime-INR (04/19/2025 11:42 AM EDT) Protime 12.1 10.6 - 13.9 sec LAB COAGULATION METHOD 04/19/2025 12:24 PM EDT [facility] INR 1.0 LAB COAGULATION METHOD 04/19/2025 12:24 PM EDT [facility] Blood Venous blood specimen / Unknown Venipuncture / Unknown 04/19/2025 11:42 AM EDT 04/19/2025 12:10 PM EDT us Perico Ambrocio MD LAB BLOOD ORDERABLES Final Resul t Performing Organization Address City/[facility]/ZIP Co de Phone Number [facility] [address] [place] [address], [place] [phone] * hCG Qualitative (04/19/2025 11:42 AM EDT) hCG Qual Negative Negative 04/19/2025 12:52 PM EDT [facility] Blood Venous blood specimen / Unknown Venipuncture / Unknown 04/19/2025 11:42 AM EDT 04/19/2025 12:10 PM EDT us Perico Ambrocio MD LAB BLOOD ORDERABLES Final Resul t Performing Organization Address [facility] Co de Phone Number [facility] [address] [place] [address], [place] [phone] * B-Type Natriuretic Peptide (BNP) (04/19/2025 11:42 AM EDT) Pathologist [facility] BNP 93 <=100 pcg/mL LAB CHEMISTRY METHOD 04/19/2025 12:52 PM EDT [facility] Blood Venous blood specimen / Unknown Venipuncture / Unknown 04/19/2025 11:42 AM EDT 04/19/2025 12:10 PM EDT us Perico Ambrocio MD LAB BLOOD ORDERABLES Final Resul t Performing Organization Address [facility]/ZIP Co de Phone Number [facility] [address] [place] [address], [place] [phone] * Magnesium (04/19/2025 11:42 AM EDT) Magnesium 1.9 1.9 - 2.6 mg/dL LAB CHEMISTRY METHOD 04/19/2025 12:45 PM EDT [facility] Blood Venous blood specimen / Unknown Venipuncture / Unknown 04/19/2025 11:42 AM EDT 04/19/2025 12:10 PM EDT Perico Ambrocio MD LAB BLOOD ORDERABLES Final Resul t [facility] [address] [place] [address], * Comprehensive Metabolic Panel (CMP) (04/19/2025 11:42 AM EDT) Sodium 138 133 - 145 mmol/L LAB CHEMISTRY METHOD 04/19/2025 12:[address] [facility] Potassium 4.3 3.5 - 5.5 mmol/L LAB CHEMISTRY METHOD 04/19/2025 12:[address] [facility] Chloride 107 96 - 110 mmol/L LAB CHEMISTRY METHOD 04/19/2025 12:[address] [facility] CO2 24 21 - 32 mmol/L LAB CHEMISTRY METHOD 04/19/2025 12:[address] [facility] Anion Gap 7 3 - 11 LAB CHEMISTRY METHOD 04/19/2025 12:[address] [facility] Glucose 92 70 - 100 mg/dL LAB CHEMISTRY METHOD 04/19/2025 12:[address] [facility] BUN 9 5 - 25 mg/dL LAB CHEMISTRY METHOD 04/19/2025 12:[address] [facility] Creatinine 0.88 0.50 - 1.10 mg/dL LAB CHEMISTRY METHOD 04/19/2025 12:[address] [facility] eGFR 83 >=60 mL/min/1. 73m2 LAB CHEMISTRY METHOD 04/19/2025 12:[address] [facility] Comment:Calculation based on the Chronic Kidney Disease Epidemiology Collaboration (CKD-EPI) equation refit without adjustment for race. BUN/Creatinine Ratio 10.2 LAB CHEMISTRY METHOD 04/19/2025 12:48 PM EDT [facility] Calcium 9.6 8.5 - 10.5 mg/dL LAB CHEMISTRY METHOD 04/19/2025 12:48 PM EDT [facility] AST (SGOT) 30 10 - 42 unit/L LAB CHEMISTRY METHOD 04/19/2025 12:48 PM EDT [facility] ALT (SGPT) 28 10 - 60 unit/L LAB CHEMISTRY METHOD 04/19/2025 12:48 PM EDT [facility] Alkaline Phosphatase 105 42 - 121 unit/L LAB CHEMISTRY METHOD 04/19/2025 12:48 PM T [facility] Total Protein 6.9 6.0 - 8.0 g/dL LAB CHEMISTRY METHOD 04/19/2025 12:[address] [facility] Albumin 3.6 3.2 - 5.0 g/dL LAB CHEMISTRY METHOD 04/19/2025 12:[address] [facility] Total Bilirubin 0.2 0.0 - 1.4 mg/dL LAB CHEMISTRY METHOD 04/19/2025 12:48 PM T [facility] Blood Venous blood specimen / Unknown Venipuncture / Unknown 04/19/2025 11:42 AM EDT 04/19/2025 12:10 PM EDT us Perico Ambrocio MD LAB BLOOD ORDERABLES Final Resul t [facility] [address] [place] [address], * Vascular US Duplex Lower Extremity Venous [...] Signed Date: 04/19/2025 11:36 ET Workstation ID: [id number] Transcribed By: Self Edit Transcribed Date: 04/19/2025 [...] -------- FINAL REPORT -------- Dictated By: BRANDT JUEN Dictated Date: 04/19/2025 11:35 ET Assigned Physician: BRANDT JUNE Reviewed and Electronically Signed By: BRANDT JUNE Signed Date: 04/19/2025 11:36 ET Workstation ID: [id number] Transcribed By: Self Edit Transcribed Date: 04/19/2025 11:35 ET us Perico Ambrocio MD CV VASCULAR PROCEDURES Final Res ult from Last 3 Months Insurance [facility] Care Teams Rough Rounder Relationship Specialty Start Date End Date Physician, No Pcp PCP - General 05/01/25
--- OUTSIDE RECORDS SUMMARY | 2025-05-09 15:56 | XMS_ITS | Clinical Summary ---
Author Organization [facility] Address [address] [place] [address] [place] [phone] Phone Care Team Providers Care Pharmacy Technician Infusion Name Role Phone Annalise Holm Angélica VACUUM TECHNICIAN Primary Care Provider [phone] Social History Tobacco Use Types Packs/Day Years [...] Description 06/20/2025 3:00 PM EST [facility] [address] [place] [phone] Sandra Vargas MD, MPH [address] [place] [phone] [email or web address] Maintenance Due Date Last Done Comments [...] Medical Devices Not on file Insurance [facility] [employer] [facility] [employer] [employer] Care Teams Pharmacy Technician Infusion Relationship Specialty Start Date End Date Annalise Holm NP [address] [place] [address] [phone] PCP - General Family Medicine 10/08/24 Additional Source Comments The information contained in this document represents components of the legal health record. It is not the complete legal health record.[facility]
== END 2025-05-09 14:50 | disposition home or self-care (01) ==
LOC: HO.HMCH 13:44
PROVIDERS: PCP Internal Medicine; Visit Provider Internal Medicine
DX: Z01.818 Encounter for other preprocedural examination (principal); E66.01 Morbid (severe) obesity due to excess calories; Z68.43 Body mass index [BMI] 50.0-59.9, adult; M17.11 Unilateral primary osteoarthritis, right knee; F17.210 Nicotine dependence, cigarettes, uncomplicated; M54.50 Low back pain, unspecified; G89.29 Other chronic pain; F33.1 Major depressive disorder, recurrent, moderate

== ENCOUNTER → 2025-05-09 13:44 | Outpatient (BNVA) | payer OTHER, SELFPAY | PROVIDERS: PCP Internal Medicine; Visit Provider Internal Medicine | DX: Z01.818 Encounter for other preprocedural examination (principal); E66.01 Morbid (severe) obesity due to excess calories; Z68.43 Body mass index [BMI] 50.0-59.9, adult; M17.11 Unilateral primary osteoarthritis, right knee; F17.210 Nicotine dependence, cigarettes, uncomplicated; M51.360 Other intervertebral disc degeneration, lumbar region with discogenic back pain only; G89.29 Other chronic pain; F33.1 Major depressive disorder, recurrent, moderate; J44.9 Chronic obstructive pulmonary disease, unspecified; Z79.899 Other long term (current) drug therapy | CPT/HCPCS: 93005; 99212 ==

== ENCOUNTER 2025-06-06 09:50 | Outpatient (AMB) | payer OTHER, SELFPAY ==
--- NOTE | 2025-06-06 09:56 | MHC.PC.OV ---
Vital Signs 06/06/25 09:57 Height 5 ft 1 in Weight 265 lb 6 oz BMI 50.1 BP 132/62 Blood Pressure Location Lt brachial Position Sitting Pulse 57 Pulse Source Pulse Oximeter Temp 96.9 F Temp Source Temporal Artery Scan Pulse Oximetry (%) 97 Oxygen Delivery Method Room Air Intake Visit Reasons: Follow Up Intake Note: Patient is here to follow up on COPD, OA, Hypothyroidism. Sociology Professor Required: No Quantometer Operator: Not Required per policy Accompanied by: Self / Same As Patient Allergies brexpiprazole (From Rexulti) Allergy (Severe, Verified 06/06/25 09:58) Rash shellfish derived (shellfish) Allergy (Severe, Verified 06/06/25 09:58) Irritable lamotrigine (From Lamictal) Adverse Reaction (Severe, Verified 06/06/25 09:58) Rash venlafaxine (From Effexor) Adverse Reaction (Severe, Verified 06/06/25 09:58) Rash Medication List - Last Reconciled 06/06/25 by Stevie Rosales MD acetaminophen ER (Tylenol Arthritis Pain) 650 mg PO Q8H PRN albuterol sulfate 90 mcg/actuation (Ventolin HFA) 2 puffs inhalation QID PRN atorvastatin (Lipitor) 10 mg PO DAILY budesonide-formoterol 160-4.5 mcg/actuation (Symbicort) 2 puffs inhalation BID diclofenac sodium 1% (Voltaren Arthritis Pain) 4 grams topical QID diclofenac sodium 1% (Voltaren Arthritis Pain) 2 grams topical QID hydroxyzine HCl 50 mg PO TID PRN ibuprofen 800 mg PO Q8H PRN [Knee brace As directed] levothyroxine (Synthroid) 175 mcg PO DAILY lidocaine 4% 1 patch topical DAILY PRN melatonin 6 mg (2 x 3 mg) PO BEDTIME PRN methocarbamol 1,000 mg (2 x 500 mg) PO BID nicotine 1 patch transdermal DAILY oxcarbazepine 900 mg (1.5 x 600 mg) PO BID permethrin 5% 1 appl topical Q14D 2 doses trazodone 200 mg (2 x 100 mg) PO BEDTIME Tobacco use date assessed: 06/06/25 Dental Screening Dental Screen Date: 04/28/25 HPI HPI Comments History of Present Illness Details The patient is a 45 year old female presenting with PMH of bilateral knee OA, HLD, history of substance use disorder, Asthma/COPD, with follow-up for multiple health problems. She experienced a severe asthma attack 05/28 which led to two consecutive emergency room visits on May 28 and after an initial urgent care visit. At the urgent care, her oxygen level was 82%. She was diagnosed with an exacerbated COPD attack and required multiple breathing treatments and prednisone. CXR in the ED was negative. She completed a five-day taper of prednisone 40 mg daily, which she finished on Friday. Despite the steroid course and her current regimen of Symbicort 160mcg (two puffs twice daily) and Ventolin (two puffs every four hours as needed), she feels her asthma is still not well controlled and reports ongoing chest symptoms and productive cough, though the cough is improving. She has a COPD breathing test scheduled for June 17 but has never seen a superintendent stations. Additionally, the patient reports new onset stress urinary incontinence, experiencing urine leakage with coughing or sudden movements. She also describes an episode yesterday of bright red blood on the toilet paper after wiping, which occurred three times consecutively without pain or blood in the toilet bowl. She has a history of hemorrhoids. The patient has significant anxiety and fear of needles, which has previously led to her avoiding dental care, resulting in tooth loss. She has upcoming appointments for bilateral knee injections on June 08, , and , and expresses extreme anxiety about the procedures. She has an appointment with an SHELVING SUPERVISOR scheduled for September and an MRI of her back scheduled for the . The patient reports having stopped smoking and is not using nicotine patches. She has been out of her methocarbamol for over a week but is doing fine without it. Her current pain regimen includes ibuprofen 800mg and Tylenol, both taken twice daily. [facility] Medical History COPD (chronic obstructive pulmonary disease) Other intervertebral disc degeneration, 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 Pre-diabetes Arthritis of right knee Kidney stones Surgical History H/O lithotripsy Social History Household Members: Other Housing: Other Housing Other:: [facility] Alcohol intake: never Patient Tobacco Use Status: Former Tobacco user Tobacco use type: Cigarette Cigarettes Per Day: 0.5 e-Cigarette/Vaping Use: Never Used Second Hand Smoke Exposure: Yes service: No Current occupational status: unemployed Cognitive needs: No Hearing needs: No Vision needs: Yes Questionnaire Thrive Questionnaire Date Thrive assessed: 04/05/25 I am a: Patient What is your living situation today?: I have a steady place to live Within the past 12 months, did the food you bought not last and you didn't have the money to get more?: Often true Within the past 12 months, did you worry whether your food would run out before you got money to buy more?: Often true Do you have trouble paying for medicines?: No Do you have trouble getting transportation to medical appointments?: No Do you have trouble paying your heating and electricity bill?: No Do you have trouble taking care of your child, family member or friend?: No Do you have trouble with day-to-day activities such as bathing, preparing meals, shopping, managing finances, etc.?: Yes Are you currently unemployed and looking for a job?: No Are you interested in more education?: Yes THRIVE Score: 2 VOLODYMYR-7 AMB Questionnaire VOLODYMYR-7 Date VOLODYMYR - 7 assessed: 04/05/25 Source: Developed by Drs. Phan Land, Lilian Brady, Francois Salguero and colleagues, with an educational nayely from [employer]. Review of Systems Const Details: As per HPI. Physical exam (Primary Care) Vital Signs: Last Vital Signs Temp 96.9 F 06/06/25 09:57 Pulse 57 06/06/25 09:57 BP 132/62 06/06/25 09:57 Pulse Ox 97 06/06/25 09:57 Oxygen Delivery Method Room Air 06/06/25 09:57 BMI result Body Mass Index 50.1 Tobacco/Smoking Status: Tobacco use Status Tobacco use date assessed 06/06/25 06/06/25 09:59 Patient Tobacco Use Status Former Tobacco user 06/06/25 09:59 Tobacco use type Cigarette 06/06/25 09:59 e-Cigarette/Vaping Use Never Used 06/06/25 09:59 Thrive Assessment: Date of Thrive Assessment Date Thrive assessed 04/05/25 06/06/25 09:59 Const Other: Pertinent findings are in BOLD GENERAL APPEARANCE NAD, activity normal for age, well developed/ well nourished, no cyanosis, pallor, or diaphoresis. EYES lids/conjunctiva normal. EARS/NOSE/THROAT Mucous membranes moist, nares normal, lips/teeth normal uvula midline without oral pharyngeal erythema, exudate or swelling TMs normal bilaterally. No lymphangitis/lymphedema. HEAD/NECK normocephalic atraumatic, no facial trauma, neck is supple. RESPIRATORY respiratory effort normal, speaks in full sentences, no tripod position, no accessory muscle use. Lungs clear to auscultation without rhonchi, wheezes, rales. CARDIAC Regular rate and rhythm, no edema. ABDOMINAL Soft, ND/NT. No evidence of fluid wave. No pulsatile masses on exam, rebound tenderness, Reynolds sign or pain over Mcburney's point. MUSCLES/EXTREMITIES No abnormal range of motion, no swelling. SKIN Warm, pink and dry. No rashes, dermatoses, petechiae or lesions. NEUROLOGICAL Speech is clear and appropriate. Normal level of consciousness. Gait and coordination are normal. 5/5 strength in all extremities. PSYCH Normal mood and affect. Judgement/competence is appropriate Coding Level of Care Code Est Pt Level 4 (38354) Diagnoses Chronic obstructive pulmonary disease, unspecified COPD type J44.9 COPD type: unspecified COPD Urinary incontinence R32 Rectal bleeding K62.5 Anxiety about treatment R45.89 Chronic midline low back pain, unspecified whether sciatica present M54.50; G89.29 Chronicity: chronic Back pain laterality: midline Sciatica presence: unspecified whether sciatica present Hypothyroidism, unspecified type E03.9 Hypothyroidism type: unspecified Time Spent (min) 30 Assessment & Plan Assessment & Plan (1) COPD (chronic obstructive pulmonary disease): Code(s): J44.9 - Chronic obstructive pulmonary disease, unspecified Category: Medical Qualifiers: COPD type: unspecified COPD Qualified Code(s): J44.9 - Chronic obstructive pulmonary disease, unspecified Plan: - The patient's asthma symptoms are not well-controlled despite being on high-dose Symbicort and albuterol. - A referral to a superintendent stations will be placed for further management. - Scheduled for PFT on 12/19. - Medical clearance for her pending dental procedure will be deferred until after the pulmonology consultation. (2) Urinary incontinence: Code(s): R32 - Unspecified urinary incontinence Category: Medical Plan: - A urinalysis will be ordered to rule out a urinary tract infection. - If no infection is found, treatment options in primary care are limited beyond incontinence pads. - She is advised to keep her scheduled appointment with her SHELVING SUPERVISOR in September for further evaluation. (3) Rectal bleeding: Comment: Hx of hemorrhoids Code(s): K62.5 - Hemorrhage of anus and rectum Category: Medical Plan: - To address the rectal bleeding, a suppository will be prescribed for possible hemorrhoids. - If the suppositories do not provide relief, a referral to a specialist will be considered. (4) Anxiety about treatment: Code(s): R45.89 - Other symptoms and signs involving emotional state Category: Medical Plan: - The patient has significant anxiety about upcoming knee injections. - A prescription for three doses of Ativan 0.5 mg will be provided to be taken prior to each of the three scheduled procedures. - The medication will be delivered to her facility and administered by staff on the day of the procedures. - She was instructed not to drive after taking the medication. (5) Lower back pain: Comment: Radiating to her legs. Code(s): M54.50 - Low back pain, unspecified Category: Medical Qualifiers: Chronicity: chronic Back pain laterality: midline Sciatica presence: unspecified whether sciatica present Qualified Code(s): M54.50 - Low back pain, unspecified; G89.29 - Other chronic pain Plan: - The patient has been without methocarbamol for over a week and agrees to a trial of discontinuing the medication. - Discussion was held about gradually reducing ibuprofen use to avoid long-term reliance on pain medications. (6) Hypothyroidism: Code(s): E03.9 - Hypothyroidism, unspecified Category: Medical Qualifiers: Hypothyroidism type: unspecified Qualified Code(s): E03.9 - Hypothyroidism, unspecified Plan: Continue Levothyroxine 175 mcg daily. Repeat TSH ordered in 4 weeks. Plan I discussed with the patient that her asthma is not well controlled despite her current medications, and I will refer her to a superintendent stations for specialized care. We will order a urinalysis to check for an infection as a cause for her urinary leakage, and I advised her to follow up with her SHELVING SUPERVISOR as planned for further evaluation. For her rectal bleeding, I will prescribe a suppository for hemorrhoids and we will re-evaluate if symptoms persist. Given her severe anxiety and fear of needles, I have agreed to prescribe a small dose of Ativan (0.5 mg) for her to take before each of her three knee injection procedures. I emphasized that she must take it only on the day of the procedure and that she should not drive afterward. The prescription will be delivered to and managed by her residential facility staff. We agreed to a trial off methocarbamol since she has been managing without it. I encouraged her to continue her smoking cessation efforts, noting that some initial weight gain is normal and worthwhile. I scheduled a follow-up visit in one month to follow up on pain injections, lung problems and other chronic medical problems. Orders: Orders TSH reflex Free T4 3 Weeks E03.9 - Hypothyroidism, unspecified UA and rflx microscopic Today R32 - Unspecified urinary incontinence Referrals Pulmonology Referral J44.9 - Chronic obstructive pulmonary disease, unspecified Medications: New hydrocortisone acetate (Hemmorex-HC) 30 mg MS DAILY 12 ea 0RF lorazepam (Ativan) 0.5 mg orally On day of procedure. June 08, , and PRN; To be used on the day of procedure only. June 08, , and 3 tabs 0RF anxiety Discontinued permethrin 5% apply second treatment 14 days after first treatment if live lice remain Discontinued Reason: No Longer Medically Relevant 1 appl topical Q14D 60 grams 0RF
[2025-06-06 09:57] VITALS: BP 132/62; PULSE 57; TEMP 36.1; O2SAT 97; BMI 50.1
== END 2025-06-06 10:39 | disposition home or self-care (01) ==
LOC: HO.HMCH 09:52
PROVIDERS: PCP Internal Medicine; Visit Provider Internal Medicine
DX: J44.9 Chronic obstructive pulmonary disease, unspecified (principal); R32 Unspecified urinary incontinence; K62.5 Hemorrhage of anus and rectum; R45.89 Other symptoms and signs involving emotional state; M54.50 Low back pain, unspecified; G89.29 Other chronic pain; E03.9 Hypothyroidism, unspecified

== ENCOUNTER → 2025-06-06 09:50 | Outpatient (BNVA) | payer OTHER, SELFPAY | PROVIDERS: PCP Internal Medicine; Visit Provider Internal Medicine | DX: M17.0 Bilateral primary osteoarthritis of knee (principal); E78.5 Hyperlipidemia, unspecified; J44.89 Other specified chronic obstructive pulmonary disease; N39.3 Stress incontinence (female) (male); F41.9 Anxiety disorder, unspecified; K62.5 Hemorrhage of anus and rectum; M54.50 Low back pain, unspecified; G89.29 Other chronic pain; E03.9 Hypothyroidism, unspecified; Z87.891 Personal history of nicotine dependence | CPT/HCPCS: 99212 ==

== ENCOUNTER 2025-06-08 10:42 | Outpatient (AMB) | payer OTHER, SELFPAY ==
--- NOTE | 2025-06-08 10:46 | A.OFFVIS_ITS ---
Intake Visit Reasons: Bilateral knee pains Intake Note: Dagoberto is a 44 year old female who presents with complaints of bilateral knee pains. She describes her pains as sharp in nature. She has failed the last 3 months of conservative treatment. She wishes to hold off on surgery if at all possible. She has not had a viscosupplementation injection in the past. Allergies brexpiprazole (From Rexulti) Allergy (Severe, Verified 06/06/25 09:58) Rash shellfish derived (shellfish) Allergy (Severe, Verified 06/06/25 09:58) Irritable lamotrigine (From Lamictal) Adverse Reaction (Severe, Verified 06/06/25 09:58) Rash venlafaxine (From Effexor) Adverse Reaction (Severe, Verified 06/06/25 09:58) Rash Medication List - Last Reconciled 06/08/25 by Ron Martin MD acetaminophen ER (Tylenol Arthritis Pain) 650 mg PO Q8H PRN albuterol sulfate 90 mcg/actuation (Ventolin HFA) 2 puffs inhalation QID PRN atorvastatin (Lipitor) 10 mg PO DAILY budesonide-formoterol 160-4.5 mcg/actuation (Symbicort) 2 puffs inhalation BID diclofenac sodium 1% (Voltaren Arthritis Pain) 4 grams topical QID diclofenac sodium 1% (Voltaren Arthritis Pain) 2 grams topical QID hydrocortisone acetate (Hemmorex-HC) 30 mg OR DAILY hydroxyzine HCl 50 mg PO TID PRN ibuprofen 800 mg PO Q8H PRN [Knee brace As directed] levothyroxine (Synthroid) 175 mcg PO DAILY lidocaine 4% 1 patch topical DAILY PRN lorazepam (Ativan) 0.5 mg orally On day of procedure. June 08, , and PRN; To be used on the day of procedure only. June 08, , and melatonin 6 mg (2 x 3 mg) PO BEDTIME PRN nicotine 1 patch transdermal DAILY oxcarbazepine 900 mg (1.5 x 600 mg) PO BID trazodone 200 mg (2 x 100 mg) PO BEDTIME PFSH Medical History COPD (chronic obstructive pulmonary disease) Other intervertebral disc degeneration, 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 Pre-diabetes Arthritis of right knee Kidney stones Surgical History H/O lithotripsy Social History Household Members: Other Housing: Other Housing Other:: [facility] Alcohol intake: never Patient Tobacco Use Status: Former Tobacco user Tobacco use type: Cigarette Cigarettes Per Day: 0.5 e-Cigarette/Vaping Use: Never Used Second Hand Smoke Exposure: Yes service: No Current occupational status: unemployed Cognitive needs: No Hearing needs: No Vision needs: Yes Physical Exam Extrem Other: Bilateral knee examination shows minimal effusions, palpable crepitus with range of motion, pain with range of motion, no instability Office Procedures AMB Joint Injection/Aspiration Joint Injection/Aspiration Primary Site: Left Knee Prep: site was prepped using aseptic technique Injected: 60 mg of, Durolane, with 3 mL of and 1% plain Lidocaine Procedure: The patient tolerated the procedure well Coding 05122 - Large joint Procedure code (CPT) selection complete AMB Joint Injection/Aspiration Joint Injection/Aspiration Primary Site: Right Knee Prep: site was prepped using aseptic technique Injected: 60 mg of, Durolane, with 3 mL of and 1% plain Lidocaine Procedure: The patient tolerated the procedure well Coding 46018 - Large joint Procedure code (CPT) selection complete Results Reviewed Results Reviewed: X-rays of the patient's bilateral knees taken previously show joint space narrowing, subchondral sclerosis, no acute bony abnormalities Assessment & Plan Assessment & Plan (1) Osteoarthritis of left knee: Code(s): M17.12 - Unilateral primary osteoarthritis, left knee Category: Medical (2) Osteoarthritis of right knee: Code(s): M17.11 - Unilateral primary osteoarthritis, right knee Category: Medical Qualifiers: Osteoarthritis type: primary Qualified Code(s): M17.11 - Unilateral primary osteoarthritis, right knee Plan Ms. Holloway presents with bilateral knee pains due to osteoarthritis. The risks and benefits of bilateral knee Durolane viscosupplementation injections were discussed at length with the patient. The patient wished to proceed. She tolerated the injections well. She will continue with her home exercise program. She will contact me prior to her follow-up appointment in 3 months should any questions or concerns arise. Feel free to call me at any time should questions regarding her orthopedic management arise. I spent 22 minutes in reviewing the patient's records and imaging studies, seeing the patient and documenting in the medical record. Orders: Orders AMB Joint Injection/Aspiration Today M17.12 - Unilateral primary osteoarthritis, left knee AMB Joint Injection/Aspiration Today M17.11 - Unilateral primary osteoarthritis, right knee Coding Level of Care Code Est Pt Level 3 (57687) Add On Problem Visit Only Diagnoses Osteoarthritis of left knee M17.12 Primary osteoarthritis of right knee M17.11 Osteoarthritis type: primary CPT Codes Coding - 79604 Large joint: 77026 - Large joint ([id number]) Coding - 53143 Large joint: 05006 - Large joint ([id number])
== END 2025-06-08 11:15 | disposition home or self-care (01) ==
LOC: HO.HOS 10:43
PROVIDERS: PCP Internal Medicine; Visit Provider Orthopaedic Surgery
DX: M17.0 Bilateral primary osteoarthritis of knee (principal); M17.11 Unilateral primary osteoarthritis, right knee
CPT/HCPCS: 20610; 99213

== ENCOUNTER → 2025-06-08 10:42 | Outpatient (BNVA) | payer OTHER, SELFPAY | PROVIDERS: PCP Internal Medicine; Visit Provider Orthopaedic Surgery | DX: M17.0 Bilateral primary osteoarthritis of knee (principal) | CPT/HCPCS: 20610; 99212; J2003; J7318 ==

== ENCOUNTER → 2025-06-13 09:49 | Outpatient (BNV) | payer OTHER, SELFPAY | PROVIDERS: Absent Provider Internal Medicine; PCP Internal Medicine; Visit Provider Radiology Diagnostic Radiology | DX: M47.817 Spondylosis without myelopathy or radiculopathy, lumbosacral region (principal); M48.07 Spinal stenosis, lumbosacral region | CPT/HCPCS: 72148 ==

== ENCOUNTER 2025-06-13 09:50 | Outpatient (REF) | payer OTHER, SELFPAY ==
--- NOTE | ~2025-06-13 | MR_ITS ---
EXAMINATION: MR LUMBAR SPINE WITHOUT CONTRAST CLINICAL INFORMATION: M 54.50 COMPARISON: Correlated to x-ray dated May 03, 2025. TECHNIQUE: MRI of the lumbar spine was obtained using routine sequences without contrast. FINDINGS: Sacralized vertebra labeled L5. non-ribT vertebra 12. No bone marrow STIR signal abnormality. Intrinsic hyperintense T1 bone lesion at T12 likely intraosseous hemangioma. Normal alignment. Mild multilevel marginal osteophyte formation and disc desiccation. Conus medullaris ends at pedicle of L1 with normal signal. T12-L1: No herniated disc. No neuroforamina stenosis. L1-2: Broad-based disc bulging. No central spinal canal or neuroforamina stenosis. L2-3: Broad-based disc bulging. No central spinal canal stenosis. Bilateral facet joint hypertrophy resulting in bilateral neuroforamina narrowing. L3-4: Broad-based disc bulging. Facet joint hypertrophy. No central spinal canal stenosis. Bilateral neuroforamina stenosis encroaching the L3 exiting nerve root. L4-5: Broad-based disc bulging. Facet joint and ligamentum flavum hypertrophy. Mild reduced AP diameter of the thecal sac. Bilateral neuroforamina stenosis encroaching the L4 exiting nerve roots. L5-S1: Broad-based disc bulging. Facet joint hypertrophy. Reduced AP diameter of the thecal sac. Bilateral neuroforamina narrowing. No prevertebral compartment hematoma, mass or fluid collection. Layering intraluminal hypointense T2 lesions within the gallbladder neck. Common bile duct measures 5 mm. MR/MR lumbar spine wo con IMPRESSION: Multilevel lumbar spondylosis from L2-3 to L5-S1 resulting in bilateral neuroforamina narrowing likely encroaching the exiting nerve roots. Cholelithiasis. Electronically signed by: Chi Hitchcock MD 06/13/2025 10:49 AM EST
[2025-06-13 11:55] LABS: Appearance Urine Cloudy; Glucose Urine UA Negative (Negative); PH 5.5 (5.0-9.0); Specific Gravity - Urine >= 1.030 (1.005-1.025); UMIC TRIGGER UA YES
== END 2025-06-13 09:51 | disposition home or self-care (01) ==
LOC: HO.MRI 09:50
PROVIDERS: Absent Provider Internal Medicine; PCP Internal Medicine; Visit Provider Orthopaedic Surgery
DX: M79.604 Pain in right leg (principal); M54.50 Low back pain, unspecified; E03.9 Hypothyroidism, unspecified
CPT/HCPCS: 36415; 72148; 81001; 84443

== ENCOUNTER 2025-06-17 09:19 | Outpatient (REF) | payer OTHER, SELFPAY ==
--- NOTE | ~2025-06-17 | MM_ITS ---
EXAMINATION: MM SCREENING DIGITAL BREAST TOMOSYNTHESIS, BILATERAL CLINICAL INFORMATION: Screening. Asymptomatic. COMPARISON: Mammography: Baseline. TECHNIQUE: Digital breast mammography with tomosynthesis is performed in both the craniocaudal and mediolateral oblique views along with computer-aided detection (CAD). FINDINGS: There are scattered areas of fibroglandular density. There are no significant masses, abnormal calcifications, or other abnormalities. MM/MM tomosynthesis screening BI IMPRESSION: No mammographic evidence of malignancy. ASSESSMENT: BI-RADS Category 1: Negative RECOMMENDATION: Routine annual mammography screening. 1 year F/U This examination should not preclude the clinical evaluation of a suspicious palpable abnormality. This patient's information was entered into a reminder system with a target due date for their next mammogram. Electronically signed by: Audra Emery DO 06/20/2025 05:45 PM [facility]
--- NOTE | 2025-06-17 09:42 | PFT_ITS ---
Flows: FEV1: 66 % of predicted at 1.71 L FVC: 77 % of predicted at 2.47 L FEV1/FVC: 69 % Bronchodilator response: Absent Volumes: Total lung capacity: 82 % of predicted at 3.85 L Residual volume: 121 % of predicted at 1.54 L Slow vital capacity: 67 % of predicted at 2.31 L Expiratory reserve volume: 27 % of predicted at 0.26 L Diffusion capacity: Mildly decreased, corrects to normal after adjustment for alveolar ventilation. Impression: Moderate obstructive ventilatory defect with no bronchodilator response. Increased residual volume suggests air trapping. Decreased expiratory reserve volume suggests extrathoracic restriction likely secondary to abdominal obesity. Decreased diffusion capacity suggests emphysema. MTDD
--- OUTSIDE RECORDS SUMMARY | 2025-06-17 09:57 | XMS_ITS | Clinical Summary ---
Author Organization [facility] Address [address] [place] [address] Phone Care Team Providers Care Director Of Home Care Hospice Name Role Phone Physician, No Pcp Primary Care Provider Unavaila ble Allergies Active Allergy Reactions Criticality Noted Date Comments Venlafaxine 04/19/2025 Iodine 04/19/2025 Lamotrigine 04/19/2025 Brexpiprazole 04/19/2025 Medications No known medications Encounters Date Type Department Care Team Description 05/01/2025 12:30 PM EST - 05/01/2025 3:15 PM EST Emergency [facility] Emergency [address] [place] [address] Skyler Connor MD Mogul, Ashley, MD Sprain of right knee, unspecified ligament, initial encounter (Primary Dx); Arthritis of right knee Discharge Disposition: Home or Self Care 04/19/2025 1:38 PM EDT - 04/19/2025 5:46 PM EDT Emergency [facility] Emergency [address] [place] [address] Perico Ambrocio MD Right leg swelling (Primary Dx); COPD exacerbation (CMS/HCC V24, CMS/HCC V28) Discharge Disposition: Home or Self Care [...] on file Sexual Orientation Not on file Last Filed Vital Signs Vital Sign Reading [...] Cervical Cancer Screening: P ap Smear 2000 Depression Screening 06/30/2024 COVID-19 Vaccine ( - 2024-2 6 season) 2025 Influenza Vaccine (#1) 2025 HIV Screening 04/19/2025 Hepatitis C Screening 04/19/2025 Social Influencers of Health Screening 04/19/2025 RSV Immunization Adult Patie nts (1 - 1-dose 75+ series) 2054 HIB Vaccines Aged Out No longer eligi ble based on patient's age to complete this topic HPV Vaccines Aged Out No longer eligi ble [...] VIEWS STAT 04/19/2025 12:3 0 PM EDT [id number], RSV, FLU A AND B QUALITATIVE RT-PCR, [...] Signed Date: 05/01/2025 14:45 ET Workstation ID: [id number] Transcribed By: Self Edit Transcribed Date: 05/01/2025 [...] Signed Date: 05/01/2025 14:45 ET Workstation ID: [id number] Transcribed By: Self Edit Transcribed Date: 05/01/2025 14:43 ET Skyler Connor MD IMG XR PROCEDURES Final Result * ECG-Annotated (04/20/2025) Provider Onbase ECG ORDERABLES Final Result * Urinalysis with reflex microscopic (04/19/2025 3:47 PM EDT) Specific [place] Urine 1.011 1.003 - 1.030 LAB URINALYSIS - AUTOMATED METHOD 04/19/2025 4:11 PM [facility] pH, Urine 6.0 5.0 - 8.0 pH LAB URINALYSIS - AUTOMATED METHOD 04/19/2025 4:11 PM [facility] Leukocytes, Urine Negative Negative LAB URINALYSIS - AUTOMATED METHOD 04/19/2025 4:11 PM [facility] Nitrite, Urine Negative Negative LAB URINALYSIS - AUTOMATED METHOD 04/19/2025 4:11 PM [facility] Protein, Urine Negative <=Trace mg/dL LAB URINALYSIS - AUTOMATED METHOD 04/19/2025 4:11 PM [facility] Glucose, Urine Negative Negative mg/dL LAB URINALYSIS - AUTOMATED METHOD 04/19/2025 4:11 PM [facility] Ketones, Urine Negative Negative mg/dL LAB URINALYSIS - AUTOMATED METHOD 04/19/2025 4:[address] [facility] Urobilinogen, Urine 0.2 0.2 - 1.0 mg/dL LAB URINALYSIS - AUTOMATED METHOD 04/19/2025 4:[address] [facility] Bilirubin, Urine Negative Negative LAB URINALYSIS - AUTOMATED METHOD 04/19/2025 4:[address] [facility] Blood, Urine Negative Negative LAB URINALYSIS - AUTOMATED METHOD 04/19/2025 4:[address] [facility] Urine Urine specimen obtained by clean catch procedure / Unknown Non-blood Collection / Unknown 04/19/2025 3:47 PM EDT 04/19/2025 3:57 PM EDT us Perico Ambrocio MD LAB URINE ORDERABLES Final Resul t Performing Organization Address City/[facility]/ZIP Co de Phone Number [facility] [address] [place] [address], [place] [phone] * 12-Lead ECG (04/19/2025 2:24 PM EDT) Ventricular Rate ECG 63 BPM GEMUSE Atrial Rate 63 BPM GEMUSE P-R Interval 152 ms GEMUSE QRS Duration 80 ms GEMUSE Q-T Interval 434 ms GEMUSE QTc 444 ms GEMUSE P Wave Ipava 72 degrees GEMUSE R Ipava 39 degrees GEMUSE T Ipava 53 degrees GEMUSE ECG Interpretation Normal sinus rhythm Normal ECG No previous ECGs available Confirmed by Mariam AMBROSE JOHN ([id number]) on 04/20/2025 7:11:23 PM GEM[facility] 04/19/2025 2:24 PM EDT 04/20/2025 7:11 PM EDT us Perico Ambrocio MD ECG ORDERABLES Final Result Performing Organization Address City/[facility]/ZIP Co de Phone Number G[facility] * Troponin I High Sensitivity (04/19/2025 2:10 PM EDT) Only the most recent of2 resultswithin the time period is included. High Sensitivity Troponin I 7 <=54 ng/L LAB CHEMISTRY METHOD 04/19/2025 3:[address] [facility] Blood Venous blood specimen / Unknown Venipuncture / Unknown 04/19/2025 2:10 PM EDT 04/19/2025 2:[address] [facility] - 04/19/2025 3:39 PM EDT High levels of biotin in samples may falsely decrease hsTroponin values. Use caution when interpreting hsTroponin results in patients taking biotin who exhibit renal impairment (eGFR <60) or in patients taking more than 20 mg/day of biotin. us Perico Ambrocio MD LAB BLOOD ORDERABLES Final Resul t [facility] [address] [place] [address], [place] [phone] * XR Chest 2 Views (04/19/2025 12:30 [...] Signed Date: 04/19/2025 12:48 ET Workstation ID: [id number] Transcribed By: Self Edit Transcribed Date: 04/19/2025 [...] Signed Date: 04/19/2025 12:48 ET Workstation ID: [id number] Transcribed By: Self Edit Transcribed Date: 04/19/2025 12:47 ET us Perico Ambrocio MD IMG XR PROCEDURES Final Result * [id number], RSV, Influenza A and B qualitative RT-PCR (04/19/2025 11:43 AM EDT) Influenza A PCR Not Detected Not Detected LAB MICROBIOLOGY METHOD 04/19/2025 12:[address] [facility] Influenza B PCR Not Detected Not Detected LAB MICROBIOLOGY METHOD 04/19/2025 12:[address] [facility] RSV PCR Not Detected Not Detected LAB MICROBIOLOGY METHOD 04/19/2025 12:[address] [facility] SARS COV-2 Not Detected Not Detected LAB MICROBIOLOGY METHOD 04/19/2025 12:[address] [facility] Swab Nasopharyngeal structure / Unknown Non-blood Collection / Unknown 04/19/2025 11:43 AM EDT 04/19/2025 12:08 PM EDT us Perico Ambrocio MD LAB MICROBIOLOGY - GENERAL ORDER NAVIN Final Result [facility] [address] [place] [address], [place] [phone] * (ABNORMAL) CBC auto differential (04/19/2025 11:42 AM EDT) [facility] WBC 10.8 4.8 - 10.8 K/mcL LAB HEMETOLOGY METHOD 04/19/2025 12:26 PM [facility] RBC 4.60 3.80 - 4.80 M/mcL LAB HEMETOLOGY METHOD 04/19/2025 12:26 PM [facility] Hemoglobin 12.9 11.5 - 16.0 g/dL LAB HEMETOLOGY METHOD 04/19/2025 12:26 PM [facility] Hematocrit 41.0 35.0 - 47.0 % LAB HEMETOLOGY METHOD 04/19/2025 12:26 PM [facility] MCV 88.4 79.0 - 98.0 FL LAB HEMETOLOGY METHOD 04/19/2025 12:26 PM [facility] MCH 27.8 27.0 - 32.0 pcg LAB HEMETOLOGY METHOD 04/19/2025 12:26 PM [facility] MCHC 31.5(L) 32.0 - 37.0 g/dL LAB HEMETOLOGY METHOD 04/19/2025 12:26 PM [facility] RDW 14.2 11.0 - 15.0 % LAB HEMETOLOGY METHOD 04/19/2025 12:26 PM [facility] Platelets 440(H) 130 - 400 K/mcL LAB HEMETOLOGY METHOD 04/19/2025 12:26 PM [facility] MPV 10.0 7.0 - 11.0 FL LAB HEMETOLOGY METHOD 04/19/2025 12:26 PM [facility] NRBC 0.0 <1.0 % LAB HEMETOLOGY METHOD 04/19/2025 12:26 PM [facility] NRBC Absolute 0.00 <0.10 K/mcL LAB HEMETOLOGY METHOD 04/19/2025 12:[address] [facility] Neutrophils Relative 64.2 % LAB HEMETOLOGY METHOD 04/19/2025 12:26 PM [facility] Lymphocytes Relative 22.1 % LAB HEMETOLOGY METHOD 04/19/2025 12:26 PM [facility] Monocytes Relative 8.9 % LAB HEMETOLOGY METHOD 04/19/2025 12:26 PM [facility] Eosinophils Relative 3.7 % LAB HEMETOLOGY METHOD 04/19/2025 12:26 PM [facility] Basophils Relative 0.5 % LAB HEMETOLOGY METHOD 04/19/2025 12:26 PM [facility] Immature Granulocytes Relative 0.6 % LAB HEMETOLOGY METHOD 04/19/2025 12:26 PM [facility] Neutrophils Absolute 6.92 1.50 - 7.00 K/mcL LAB HEMETOLOGY METHOD 04/19/2025 12:26 PM [facility] Lymphocytes Absolute 2.38 1.00 - 5.00 K/mcL LAB HEMETOLOGY METHOD 04/19/2025 12:26 PM [facility] Monocytes Absolute 0.96 0.20 - 1.00 K/mcL LAB HEMETOLOGY METHOD 04/19/2025 12:26 PM [facility] Eosinophils Absolute 0.40 0.00 - 0.50 K/mcL LAB HEMETOLOGY METHOD 04/19/2025 12:26 PM [facility] Basophils Absolute 0.05 0.00 - 0.20 K/mcL LAB HEMETOLOGY METHOD 04/19/2025 12:26 PM [facility] Immature Granulocytes Absolute 0.07(H) 0.00 - 0.03 K/mcL LAB HEMETOLOGY METHOD 04/19/2025 12:[address] [facility] Blood Venous blood specimen / Unknown Venipuncture / Unknown 04/19/2025 11:42 AM EDT 04/19/2025 12:10 PM EDT us Perico Ambrocio MD LAB BLOOD ORDERABLES Final Resul t Performing Organization Address City/[facility]/ZIP Co de Phone Number [facility] [address] [place] [address], [place] [phone] * APTT (04/19/2025 11:42 AM EDT) aPTT 39.1 24.1 - 39.3 sec LAB COAGULATION METHOD 04/19/2025 12:[address] [facility] Blood Venous blood specimen / Unknown Venipuncture / Unknown 04/19/2025 11:42 AM EDT 04/19/2025 12:10 PM EDT us Perico Ambrocio MD LAB BLOOD ORDERABLES Final Resul t Performing Organization Address City/[facility]/ZIP Co de Phone Number [facility] [address] [place] [address], [place] [phone] * Protime-INR (04/19/2025 11:42 AM EDT) Protime 12.1 10.6 - 13.9 sec LAB COAGULATION METHOD 04/19/2025 12:[address] [facility] INR 1.0 LAB COAGULATION METHOD 04/19/2025 12:[address] [facility] Blood Venous blood specimen / Unknown Venipuncture / Unknown 04/19/2025 11:42 AM EDT 04/19/2025 12:10 PM EDT us Perico Ambrocio MD LAB BLOOD ORDERABLES Final Resul t [facility] [address] [place] [address], [place] [phone] * hCG Qualitative (04/19/2025 11:42 AM EDT) Pathologist [facility] hCG Qual Negative Negative 04/19/2025 12:[address] [facility] Blood Venous blood specimen / Unknown Venipuncture / Unknown 04/19/2025 11:42 AM EDT 04/19/2025 12:10 PM EDT us Perico Ambrocio MD LAB BLOOD ORDERABLES Final Resul t [facility] [address] [place] [address], [place] [phone] * B-Type Natriuretic Peptide (BNP) (04/19/2025 11:42 AM EDT) [facility] BNP 93 <=100 pcg/mL LAB CHEMISTRY METHOD 04/19/2025 12:[address] [facility] Blood Venous blood specimen / Unknown Venipuncture / Unknown 04/19/2025 11:42 AM EDT 04/19/2025 12:10 PM EDT us Perico Ambrocio MD LAB BLOOD ORDERABLES Final Resul t [facility] [address] [place] [address], [place] [phone] * Magnesium (04/19/2025 11:42 AM EDT) [facility] Magnesium 1.9 1.9 - 2.6 mg/dL LAB CHEMISTRY METHOD 04/19/2025 12:[address] [facility] Blood Venous blood specimen / Unknown Venipuncture / Unknown 04/19/2025 11:42 AM EDT 04/19/2025 12:10 PM EDT us Perico Ambrocio MD LAB BLOOD ORDERABLES Final Resul t [facility] [address] [place] [address], * Comprehensive Metabolic Panel (CMP) (04/19/2025 11:42 AM EDT) Sodium 138 133 - 145 mmol/L LAB CHEMISTRY [facility] Potassium 4.3 3.5 - 5.5 mmol/L LAB CHEMISTRY METHOD 04/19/2025 12:48 PM [facility] Chloride 107 96 - 110 mmol/L LAB CHEMISTRY METHOD 04/19/2025 12:48 PM [facility] CO2 24 21 - 32 mmol/L LAB CHEMISTRY METHOD 04/19/2025 12:48 PM [facility] Anion Gap 7 3 - 11 LAB CHEMISTRY METHOD 04/19/2025 12:48 PM [facility] Glucose 92 70 - 100 mg/dL LAB CHEMISTRY METHOD 04/19/2025 12:48 PM [facility] BUN 9 5 - 25 mg/dL LAB CHEMISTRY METHOD 04/19/2025 12:48 PM [facility] Creatinine 0.88 0.50 - 1.10 mg/dL LAB CHEMISTRY METHOD 04/19/2025 12:48 PM [facility] eGFR 83 >=60 mL/min/1. 73m2 LAB CHEMISTRY METHOD 04/19/2025 12:48 PM [facility] Comment:Calculation based on the Chronic Kidney Disease Epidemiology Collaboration (CKD-EPI) equation refit without adjustment for race. BUN/Creatinine Ratio 10.2 LAB CHEMISTRY METHOD 04/19/2025 12:48 PM [facility] Calcium 9.6 8.5 - 10.5 mg/dL LAB CHEMISTRY METHOD 04/19/2025 12:48 PM [facility] AST (SGOT) 30 10 - 42 unit/L LAB CHEMISTRY METHOD 04/19/2025 12:[address] [facility] ALT (SGPT) 28 10 - 60 unit/L LAB CHEMISTRY METHOD 04/19/2025 12:[address] [facility] Alkaline Phosphatase 105 42 - 121 unit/L LAB CHEMISTRY METHOD 04/19/2025 12:[address] [facility] Total Protein 6.9 6.0 - 8.0 g/dL LAB CHEMISTRY METHOD 04/19/2025 12:[address] [facility] Albumin 3.6 3.2 - 5.0 g/dL LAB CHEMISTRY METHOD 04/19/2025 12:[address] [facility] Total Bilirubin 0.2 0.0 - 1.4 mg/dL LAB CHEMISTRY METHOD 04/19/2025 12:[address] [facility] Blood Venous blood specimen / Unknown Venipuncture / Unknown 04/19/2025 11:42 AM EDT 04/19/2025 12:10 PM EDT us Perico Ambrocio MD LAB BLOOD ORDERABLES Final Resul t [facility] [address] [place] [address], * Vascular US Duplex Lower Extremity Venous [...] Signed Date: 04/19/2025 11:36 ET Workstation ID: [id number] Transcribed By: Self Edit Transcribed Date: 04/19/2025 [...] Signed Date: 04/19/2025 11:36 ET Workstation ID: [id number] Transcribed By: Self Edit Transcribed Date: 04/19/2025 11:35 ET us Perico Ambrocio MD CV VASCULAR PROCEDURES Final Res ult from Last 3 Months Insurance [facility] PLAN Care Teams Director Of Home Care Hospice Relationship Specialty Start Date End Date Physician, No Pcp PCP - General 05/01/25
[2025-06-17 10:51] VITALS: PULSE 88
== END 2025-06-17 09:20 | disposition home or self-care (01) ==
LOC: HO.MAMMO 09:19
PROVIDERS: PCP Internal Medicine; Visit Provider Internal Medicine
DX: Z12.31 Encounter for screening mammogram for malignant neoplasm of breast (principal); J44.9 Chronic obstructive pulmonary disease, unspecified; Z87.891 Personal history of nicotine dependence
CPT/HCPCS: 77063; 77067; 94060; 94640; 94727; 94729

== ENCOUNTER → 2025-06-17 09:30 | Outpatient (BNV) | payer OTHER, SELFPAY | PROVIDERS: PCP Internal Medicine; Visit Provider Internal Medicine | DX: Z12.31 Encounter for screening mammogram for malignant neoplasm of breast (principal) | CPT/HCPCS: 77063; 77067 ==

== ENCOUNTER → 2025-06-17 09:42 | Outpatient (BNV) | payer OTHER, SELFPAY | PROVIDERS: PCP Internal Medicine; Visit Provider Internal Medicine Pulmonary Disease | DX: Z12.31 Encounter for screening mammogram for malignant neoplasm of breast (principal) | CPT/HCPCS: 94060; 94727; 94729 ==